=== PATIENT | female | born 1995 | race Caucasian/White ===

== ENCOUNTER 2019-05-29 13:44 | Emergency (ER) | payer MEDICAID, SELFPAY ==
[2019-05-29 13:54] VITALS: BP 109/77; PULSE 94; RESP 18; TEMP 37.6; O2SAT 98
--- NOTE | 2019-05-29 14:09 | W.ED.GENAD ---
Discharge Plan Disposition Patient Disposition: HOME Condition: Improving Discharge Details Chief Complaint: Nk/Back Pain Clinical Impression: Lumbar paraspinal muscle spasm Primary Care Provider: Kaci Ness ED Provider: Panfilo Jennings Home Meds and New Rx's Prescriptions: New methocarbamol 500 mg tablet 500 mg PO Q6H PRN (Reason: Back pain or spasm) Qty: 10 RF: 0 Discharge Instructions Instructions: Muscle Spasm (ED) Additional Instructions: Follow up with regular doctor for recheck if not improved in 5-7days May use methocarbamol, as prescribed, as needed for back pain or spasm. Off work through Monday. Return if you develop numbness, tingling, weakness of the lower extremity or any other acute concern Stand Alone Forms: Work Release Medical Decision Making 23-year-old female presents from home after developing low back pain over 2 to 3 days time. 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 Its intermittent and spasmodic at times. She has not fallen or injured herself. She has no motor weakness and no paresthesias. No fever on exam. She is tender overlying the left paraspinous lumbar region. Differential diagnosis includes paraspinous muscular spasm, sciatica, lumbago due to overuse. IV placed, patient given ketorolac and 2.5 mg Valium as well as small fluid bolus. She had significant improvement and diminishment of her pain following these interventions. Do not see that there is indication to pursue imaging, she is resolving with treatment for muscular spasm. Will offer a small number of methocarbamol for home, the use of a Lidoderm patch. She is stable and appropriate for discharge at this time HPI General Mode of arrival: ambulatory. Date/Time Provider Initiated Documentation: 05/29/19 13:57. Limitations to Documentation: no limitations. Information obtained by: patient and family. History of Present Illness 23 year old F presents to the emergency department with the chief complaint of Left low back pain, described as moderate and similar to prior episodes, Quality is described as dull and constant, and is localized to the back and left. Patient distal. and it has been intermittent. Rest improves symptom(s), Movement worsens symptoms . Patient notes no other symptoms. and other (No change to urination. No numbness or tingling. No fall or injury); denies weakness. Patient did receive the following treatments prior to arrival, NSAID Related Data Home Medications Medication Instructions Recorded Confirmed methocarbamol 500 mg PO Q6H PRN #10 tab 05/29/19 Previous Rx's Medication Instructions Recorded methocarbamol 500 mg PO Q6H PRN #10 tab 05/29/19 Allergies Allergy/AdvReac Type Severity Reaction Status Date / Time insect bites Allergy Hives Uncoded 05/29/19 13:58 General Stated Complaint: Nk/Back Pain DARVIN: 3 Review of Systems Review of Systems 6 systems reviewed and otherwise negative [facility] Medical History Scoliosis (Acute) Surgical History History of nasal surgery (Acute) Social History Smoking/Tobacco Use Status: Never Alcohol Intake: never Drug use: Never Do you feel safe in your relationship?: Yes Exam Narrative Exam Narrative: GEN: awake, alert, oriented 3. Pleasant, well groomed, interactive. HEAD: Normocephalic, atraumatic ENT: Mucous membranes moist, oropharynx unremarkable, External ear exam unremarkable EYES: PERRL, EOMI NECK: Full ROM, no CLOTILDE, no menigismus CHEST/RESP: Nontender, clear to auscultation bilateral, no wheeze/rhonchi/rales CARDIOVASCULAR: RRR, no murmur, rub adrianne. 2+ Rad pulse bilateral ABDOMEN: Soft, nontender, no mass. +Bowel sounds Back: Left paraspinous muscular tenderness and spasm to palpation. Mild tenderness overlying the left sciatic notch EXT: Full ROM, no edema, no rash. Motor 5 out of 5. Sensation is intact throughout including saddle distribution Neuro: Grossly normal neurologic exam, conversant, interactive. Psych: Speech fluent, thoughts congruent, affect normal Course Vital Signs Temperature 37.6 C H 05/29/19 13:54 Pulse 94 H 05/29/19 13:54 Respiratory Rate 18 05/29/19 13:54 Blood Pressure 109/77 05/29/19 13:54 Pulse Oximetry 98 05/29/19 13:54 Temperature 37.6 C H 05/29/19 13:54 Temperature Source Temporal Artery Scan 05/29/19 13:54 Pulse 94 H 05/29/19 13:54 Respiratory Rate 18 07/03/19 13:54 Respiratory Effort Non-Labored 05/29/19 13:58 Blood Pressure 109/77 05/29/19 13:54 Pulse Oximetry 98 05/29/19 13:54 Oxygen Delivery Method Room Air 05/29/19 13:54 Oxygen Flow Rate 0 05/29/19 13:54 Pain Level 9 05/29/19 13:54
[2019-05-29] MEDS: Normal Saline 1,000 ML 1000 ML IV (14:27)
[2019-05-29] MEDS: Ketorolac 15 MG/ML VIAL IVP (14:27)
[2019-05-29] MEDS: diazePAM 10 MG/2 ML SYR 2.5 MG IVP (14:27)
[2019-05-29] MEDS: Lidocaine 5% Patch 1 PATCH TP (15:30)
== END 2019-05-29 15:37 | disposition home or self-care (01) ==
PROVIDERS: Emergency Provider Emergency Medicine; PCP Nurse Practitioner
DX: M62.830 Muscle spasm of back (principal)
CPT/HCPCS: 96360; 96374; 96375; 99285; 99284; J1885; J3360

== ENCOUNTER 2019-10-21 07:17 | Day surgery (SDC) | payer MEDICAID, SELFPAY ==
[2019-10-21] VITALS (9 sets, daily range): BP systolic 109–143; BP diastolic 67–104; PULSE 62–95; RESP 13–19; TEMP 36.5–37.2; O2SAT 97–100
--- NOTE | 2019-10-21 07:35 | W.PM.DSUDISC ---
Discharge Plan Disposition Patient Disposition: HOME Condition: Good Discharge Details Reason For Visit: or Attending Provider: Anderson Suárez Primary Care Provider: Kaci Ness Home Meds and New Rx's Prescriptions: No Action ascorbic acid (vitamin C) [Vitamin C] 500 mg Capsule, Extended Release 1,000 mg PO DAILY RF: 0 cholecalciferol (vitamin D3) [Vitamin D3] 2,000 unit Tablet 2,000 unit PO DAILY RF: 0 Discharge Instructions Additional Instructions: see sheet Activity:: Activity as Tolerated Remove Dressings/Wound Care:: 24 hours Shower/Bathe:: 24 hours Diet:: As Tolerated DS: Diagnosis Discharge Diagnosis (1) Tonsil stone: Status: Acute (2) Chronic tonsillitis: Status: Acute
[2019-10-21] MEDS: Lactated Ringers 1,000 ML 80 ML IV (08:04)
--- NOTE | 2019-10-21 09:20 | TONSIL_PTH ---
PATIENT: Luna Zuniga LOC: [facility] U#:[id number] AGE/SX: 23/F ROOM: RE10/21/[address]: Anderson Suárez DO : 1995 BED: DIS: 10/21/2019 SPEC #: [id number] RECD: 10/21/19 12:46 STATUS: GRIS REQ #: [id number] RAYMON: 10/21/19 09:[address]: Anderson Suárez DEPT: Surgical Specimen RECD BY: Carito Pink ENTERED: 10/21/19 12:47 SP TYPE: TONSIL OTHR DR: Kaci Ness Tissues: 1 - TONSIL AGE 17 & OVER 2 - TONSIL AGE 17 & OVER Procedures: GROSS AND MICRO LEVEL 3 Comments: [id number]
[2019-10-21] MEDS: Oxymetazolone 0.05% SPRAY 15 ML BTL ×2 (09:28→10:30)
--- NOTE | 2019-10-21 11:14 | ROE_ITS ---
DATE OF PROCEDURE: October 21, 2019 PREOPERATIVE DIAGNOSIS: 1. Chronic tonsil stones. 2. Chronic tonsillitis. 3. History of nasal obstruction. POSTOPERATIVE DIAGNOSIS: Same, including adenoid hypertrophy and immediate postoperative bleed while still in the OR upon extubation, right-sided, status post anxiety attack upon awakening intraoperati vely. PROCEDURE: Tonsil and adenoidectomy with XPS and secondary control of right peritonsillar fossa blee d in the immediate postoperative period. SURGEON: Anderson Suárez D.O. ANESTHESIA: General. ESTIMATED BLOOD LOSS: Primary case was 5 cc's; after control of tonsil bleed post-extubation and re- intubation 100 cc's of blood evacuated from the stomach. COMPLICATIONS: Right-sided tonsil bleed upon extubation, status post anxiety attack, re-intubated, c ontrol of right-sided tonsillar fossa bleed; FloSeal placed upon the completion of the primary case, as well as the secondary case. INDICATIONS FOR PROCEDURE: This is a 23-year-old female who presents with a history of chronic tonsi l stones with tonsillitis. The decision was made forth to proceed with surgery. Risks and complicat ions were discussed in detail. Consent was placed in the Chart. PROCEDURE IN DETAIL: Patient was brought back to the operating suite in stable condition, placed driver pine on the operating table, and intubated in normal fashion. The table was rotated 90 degrees. The re was no evidence of submucosal clefting or bifid uvula. The McIvor retractor was placed in the ora l cavity and suspended from the Orozco stand. The right tonsil was grasped in the superior pole and me dialized. Pinpoint cautery was used to develop the peritonsillar fascial plane, dissection was noemy ed out to the upper and mid portions of the tonsil with final amputation conducted with suction caute ry. There was no bleeding within the right tonsillar fossa. Next, the left tonsil was grasped in th e superior pole with a curved Allis forceps and medialized. Pinpoint cautery was used to develop the peritonsillar fascial plane. Dissection was carried out in the plane in the superior and mid portio n of the tonsils. Final amputation was conducted with suction cautery without bleeding within left f olu, Valsalva was performed without bleeding. TMJ's were checked and were free of dislocation. Gas tric contents suctioned. Red rubber catheters were used to visualize the nasopharynx. The adenoid p ad was removed with 4.0 RADenoid blade and hemostasis was controlled with cautery. No bleeding exist ed. Upon extubation patient was having a mild anxiety attack, very worked up. Once the tube was removed, there was bright red blood per mouth. Anesthesia suctioned. The patient was very hysterical upon a wakening from anesthesia and extubation. She was evaluated intraoperatively still in the OR, it was felt that she had some bleeding of the right tonsillar fossa. She was moved back to the OR table and re-intubated. We isolated a right superior tonsillar fossa area that was likely the source. Althou gh once the patient was positioned, there was no overt bleeding. Both tonsillar fossae were cauteriz ed in hopes to prevent another recurrence. FloSeal was replaced. Gastric contents were re-suctioned of 100 cc's of blood from the stomach. We proceeded with Valsalva, as well as reapplication of FloS eal. There was no bleeding. The patient was stable to PACU.
[2019-10-21] MEDS: fentaNYL 100 MCG/2 ML VIAL IVP ×2 (11:19→11:26)
== END 2019-10-21 12:55 | disposition home or self-care (01) ==
PROVIDERS: PCP Nurse Practitioner; Visit Provider Otolaryngology Otolaryngology/Facial Plastic Surgery
PROC: (CPT 42821; principal; 2019-10-21 08:45)
DX: J35.03 Chronic tonsillitis and adenoiditis (principal); J35.8 Other chronic diseases of tonsils and adenoids; J95.830 Postprocedural hemorrhage of a respiratory system organ or structure following a respiratory system procedure; F41.8 Other specified anxiety disorders
CPT/HCPCS: 42821; 42960; 81025; 88304; J1100; J2250; J2405; J3010

== ENCOUNTER 2020-01-13 11:43 | Outpatient (REF) | payer MEDICAID, SELFPAY ==
[2020-01-13 19:28] LABS: HCT 44.6 % (36.0-46.0); HGB 14.7 g/dL (12.0-15.5); Mean Corpuscular Hemoglobin 30.6 pg (27.0-33.0); Mean Corpuscular Volume 92.9 fL (80-95); Mean Platelet Volume 8.7 fL (8.0-11.0); Platelet Count 380 x1000/uL (130-400); RBC Distribution Width 12.8 % (11.7-14.6); White Blood Cell Count 5.42 k/cumm (4.4-10.8)
[2020-01-13 19:47] LABS: ALT 28 U/L (14-59); AST 15 U/L (15-37); Albumin 4.4 g/dL (3.4-5.0); Alkaline Phosphatase 63 U/L (46-116); Anion Gap 10.6 mmol/L (3-11); BUN 9 mg/dL (7-18); Bilirubin, Total 0.3 mg/dL (0.2-1.0); CO2 26.4 mmol/L (21.0-32.0); CREATININE 0.71 mg/dL (0.55-1.02); Calcium 9.2 mg/dL (8.5-10.1); Chloride 105 mmol/L (98-107); Glucose 85 mg/dL (74-106); Potassium 4.1 mmol/L (3.5-5.1); Sodium 142 mmol/L (136-145); TSH (W/Ref FT4) 1.73 uIU/mL (0.36-3.74)
== END 2020-01-13 12:03 ==
LOC: NCHCN 11:43
PROVIDERS: PCP Nurse Practitioner; Visit Provider Nurse Practitioner
DX: R07.89 Other chest pain (principal); R06.02 Shortness of breath
CPT/HCPCS: 80053; 85027; 84443

== ENCOUNTER 2020-01-19 18:24 | Emergency (ER) | payer OTHER, MEDICAID, SELFPAY ==
[2020-01-19 18:26] VITALS: BP 137/99; PULSE 115; RESP 16; O2SAT 98
--- NOTE | 2020-01-19 19:00 | DI.RAD_ITS ---
EXAM: XR WRIST RT COMPLETE CLINICAL HISTORY: fall/pain TECHNIQUE: COMPARISON: No exams were available for comparison FINDINGS: Three views were obtained. No fracture is seen. IMPRESSION:
--- NOTE | 2020-01-19 19:16 | NUR.NOTE ---
Assumed care of pt. Report from Faith. Pt reports slipped on ice, fell onto right hip then arm. Ice to right forearm. +radial pulse, +csm, cap refill <3 sec. Awaiting xray.
[2020-01-19] MEDS: Acetaminophen 500 MG TAB 1000 MG PO (19:20)
--- NOTE | 2020-01-19 19:43 | W.ED.GENAD ---
Discharge Plan Disposition Patient Disposition: HOME Condition: Stable Discharge Details Chief Complaint: Orthopedic Clinical Impression: Sprain of wrist Primary Care Provider: Kaci Ness ED Provider: Manuel Kang Home Meds and New Rx's Prescriptions: Continued ascorbic acid (vitamin C) [Vitamin C] 500 mg Capsule, Extended Release 1,000 mg PO DAILY RF: 0 cholecalciferol (vitamin D3) [Vitamin D3] 2,000 unit Tablet 2,000 unit PO DAILY RF: 0 Discharge Instructions Instructions: Wrist Sprain (ED) Additional Instructions: Rest, elevate, cool and/or warm compresses as tolerated. Wear splint as needed, advance activity as tolerated. Lifo-cbr-vhguzzz medication such as Tylenol and/or Motrin as directed for discomfort. Please watch for new or worsening symptoms and return to the ER for any concerns. I do recommend reaching out to your primary care provider tomorrow for prompt outpatient reevaluation Medical Decision Making 24-year-old female fell roughly 1 hour ago, slipping on ice. Sustained a right wrist injury, no other injuries. She appears well, nontoxic. There is no obvious deformity. Neuro, vascular, tendon intact. Will obtain x-ray Discussed benign x-ray with the patient. Again, no anatomical snuffbox tenderness. Will treat as sprain-strain. Volar wrist splint applied. Patient tolerated well Discussed conservative therapy with Tylenol and/or Motrin. Rest, elevate, cool compresses. Wear splint as needed, advance activity as tolerated. Patient has no additional questions or concerns and is comfortable discharge Medical Records Medical records reviewed: Yes I reviewed the patient's medical records. Imaging Data Radiologic Study: Attestation: I personally reviewed and interpreted this imaging study as follows: Imaging: X-Ray (Right wrist read by me as negative) HPI General Mode of arrival: ambulatory. Date/Time Provider Initiated Documentation: 01/19/20 18:44. Limitations to Documentation: no limitations. Information obtained by: patient. HPI Narrative: 24-year-old female who is right-hand dominant reports that approximately 1 hour ago while at work she slipped and fell on some ice injuring her right hand and wrist. Reports the pain as moderate, worse with movement. Denies any other injury. Denies numbness, tingling, weakness. Related Data Home Medications Medication Instructions Recorded Confirmed ascorbic acid (vitamin C) [Vitamin 1,000 mg PO DAILY 10/17/19 01/19/20 C] cholecalciferol (vitamin D3) 2,000 unit PO DAILY 10/17/19 01/19/20 [Vitamin D3] Allergies Allergy/AdvReac Type Severity Reaction Status Date / Time fluticasone [From Flonase] Allergy Unverified 01/19/20 18:35 insect bites Allergy Hives Uncoded 05/29/19 13:58 General Stated Complaint: Orthopedic DARVIN: 4 Review of Systems Constitutional Constitutional: Denies headache(s) and Denies weakness Eyes Eyes: Denies change in vision ENT Ears, Nose, Mouth, and Throat: Denies headache(s) Cardiovascular Cardiovascular: Denies dyspnea Respiratory Respiratory: Denies dyspnea Gastrointestinal Gastrointestinal: Denies nausea Musculoskeletal Musculoskeletal: Denies back pain, Denies numbness and Denies tingling Integumentary/Breasts Skin/Breast: Denies rash Neurologic Neurologic: Denies headache(s), Denies numbness, Denies tingling, Denies paresthesias and Denies weakness [facility] Medical History Scoliosis (Acute) Surgical History History of nasal surgery (Acute) Family History Other Cancer Diabetes Social History Smoking/Tobacco Use Status: Never Alcohol Intake: never Drug use: Never Substance use type: does not use Do you feel safe at home: Yes Do you feel safe in your relationship?: Yes Additional Social history: unable to talk privately Exam Const General: cooperative, healthy appearing, comfortable and no acute distress Orientation: alert and awake HENMT Head: normal to inspection, normocephalic and atraumatic Mouth: moist mucous membranes Eyes Conjunctivae: conjunctivae normal Neck Neck: normal visual inspection, trachea midline and supple Resp Effort & Inspection: normal respiratory effort and able to speak in complete sentences Cardio Rate: regular rate Rhythm: regular rhythm Skin General skin exam: no rashes or lesions noted Neuro General: alert, awake, moves all extremities and no focal motor deficits Motor: muscle tone normal throughout and strength 5/5 throughout Sensory Exam: no sensory deficits noted Extrem Right upper extremity: wrist Details: tenderness (Diffuse, mild, no anatomical snuffbox tenderness), swelling (Diffuse, mild), normal vascular exam and radial pulse present; no ecchymosis Psych Appearance: grossly normal Mental Status: mental status grossly normal Course Vital Signs Vital signs: Vital Signs Pulse 115 H 01/19/20 18:26 Respiratory Rate 16 01/19/20 18:26 Blood Pressure 137/99 H 01/19/20 18:26 Pulse Oximetry 98 01/19/20 18:26 Pulse 115 H 01/19/20 18:26 Respiratory Rate 16 01/19/20 18:26 Respiratory Effort 01/19/20 18:33 Blood Pressure 137/99 H 01/19/20 18:26 Blood Pressure Position Sitting 01/19/20 18:26 Pulse Oximetry 98 01/19/20 18:26 Oxygen Delivery Method Room Air 01/19/20 18:26 Oxygen Flow Rate 0 01/19/20 18:26 Pain Level 6 01/19/20 19:20
--- NOTE | 2020-01-19 19:51 | DI.VRAD_ITS ---
PROCEDURE INFORMATION: Exam: XR Right Wrist Exam date and time: 01/19/2020 7:30 PM Age: 24 years old Clinical indication: Injury or trauma; Fall; Initial encounter; Blunt trauma (contusions or hematomas; Wrist; Right; Injury date: 01/19/20; Injury details: Fell on ice; Patient HX: Pain 4th metacarpal through ulna TECHNIQUE: Imaging protocol: XR Right wrist. Views: 3 or more views. COMPARISON: No relevant prior studies available. FINDINGS: Bones/joints: Normal trabecular architecture is seen throughout the osseous components of the right wrist and no acute fractures or dislocations are detected. Articular surfaces and spaces appear preserved throughout. Soft tissues: Unremarkable IMPRESSION: No acute fracture seen. Dictated and Authenticated by: Puma Almaraz MD. Ordering:MEAGHAN Jackson MD
== END 2020-01-19 20:15 | disposition home or self-care (01) ==
PROVIDERS: Emergency Provider Physician Assistant; PCP Nurse Practitioner
DX: S63.501A Unspecified sprain of right wrist, initial encounter (principal); W00.0XXA Fall on same level due to ice and snow, initial encounter
CPT/HCPCS: 29125; 99283; 73110; L3908

== ENCOUNTER 2020-07-16 17:10 | Emergency (ER) | payer MEDICAID, SELFPAY ==
[2020-07-16 17:12] VITALS: BP 125/76; PULSE 88; RESP 14; TEMP 37; O2SAT 98
--- NOTE | 2020-07-16 17:19 | ED.GENADUL_ITS ---
Discharge Plan Disposition Patient Disposition: HOME Condition: Stable Discharge Details Chief Complaint: Orthopedic Clinical Impression: Bilateral knee pain Primary Care Provider: Kaci Ness ED Provider: Kaila Victoria Home Meds and New Rx's Prescriptions: Continued ascorbic acid (vitamin C) [Vitamin C] 500 mg Capsule, Extended Release 1,000 mg PO DAILY RF: 0 cholecalciferol (vitamin D3) [Vitamin D3] 2,000 unit Tablet 2,000 unit PO DAILY RF: 0 Nexplanon 68 mg Implant 1 implant SUBDERMAL DIRECTED RF: 0 Discharge Instructions Instructions: Knee Pain (ED) Additional Instructions: Rest, ice, and elevate the affected area as much as possible. Alternate tylenol and motrin as needed and directed for pain. Follow up with your primary care doctor in 1 week as needed. Return to the emergency department with any worsening or new concerning symptoms. If you have no relief or worsening of symptoms in the next few weeks, follow-up with orthopedics. Stand Alone Forms: Work Release Referrals: Sonny Ndiaye MD [ [facility] STAFF PHYSICIAN] - Discharge Data Discharge Physician: Kaila Victoria Medical Decision Making 24-year-old female presents with bilateral knee pain, worse on the right side for the past week. Denies any known injury but does kneel frequently at work. Right knee is normal to inspection. She initially had significant tenderness to palpation anterior knees bilaterally with light palpation but upon distraction had no tenderness to either knee. There is no evidence of cellulitis, trauma. She is neurovascular intact. There is no ligamentous instability. Suspect most likely mild knee strain versus sprain. Will obtain bilateral knee x-rays. A dose of Toradol IM ordered but patient declines. X-rays reviewed and negative. Patient had significant relief with Toradol and was able to ambulate with improvement. She was advised to rest, ice, elevate and use Ishan wrap as needed. She was given orthopedic follow-up information if needed. Medical Records Medical records reviewed: Yes I reviewed the patient's medical records. Imaging Data Radiologic Study: Radiologist's impression: XR Right Knee Exam date and time: 07/16/2020 5:57 PM Age: 24 years old Clinical indication: Pain; Knee; Bilateral TECHNIQUE: Imaging protocol: XR Right knee. Views: 3 views. COMPARISON: No relevant images were readily available for comparison purposes. FINDINGS: Bones/joints: No acute fracture or dislocation. Soft tissues: Unremarkable. IMPRESSION: No acute fracture or dislocation. XR Left Knee Exam date and time: 07/16/2020 5:54 PM Age: 24 years old Clinical indication: Pain; Knee; Bilateral TECHNIQUE: Imaging protocol: XR Left knee. Views: 3 views. COMPARISON: No relevant images were readily available for comparison purposes. FINDINGS: Bones/joints: No acute fracture or dislocation. Soft tissues: Unremarkable. IMPRESSION: No acute fracture or dislocation. HPI General Mode of arrival: wheelchair . Date/Time Provider Initiated Documentation: 07/16/20 17:10 . Limitations to Documentation: no limitations . Information obtained by: patient . HPI Narrative: Patient is a 24-year-old female who presents to the ED with complaint of bilateral knee pain, worse on the right side for the past week. 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 She denies any known injury. She has pain with standing and walking. She states the pain made her knees buckled today and her right leg gave out. She saw her primary care doctor last week for her Nexplanon and mention her right knee pain and he prescribed her a knee brace and indomethacin which she has taken without relief. She denies any relief with Tylenol, ice, heat. Related Data Home Medications Medication Instructions Recorded Confirmed ascorbic acid (vitamin C) [Vitamin 1,000 mg PO DAILY 10/17/19 07/16/20 C] cholecalciferol (vitamin D3) 2,000 unit PO DAILY 10/17/19 07/16/20 [Vitamin D3] Nexplanon 1 implant SUBDERMAL DIRECTED 07/16/20 07/16/20 Allergies Allergy/AdvReac Type Severity Reaction Status Date / Time fluticasone [From Flonase] Allergy Unverified 07/16/20 17:21 insect bites Allergy Hives Uncoded 07/16/20 17:21 General DARVIN: 4 Review of Systems All systems reviewed & are unremarkable except as noted in HPI and below [facility] Medical History (Updated 07/16/20 @ 19:20 by Kaila Victoria DO) Scoliosis (Acute) Surgical History History of nasal surgery (Acute) Family History Other Cancer Diabetes Social History Smoking/Tobacco Use Status: Never Alcohol Intake: never Drug use: Never Substance use type: does not use Do you feel safe at home: Yes Do you feel safe in your relationship?: Yes Exam Const General: cooperative, healthy appearing and no acute distress HENMT Head: normal to inspection Mouth: oral mucosae normal Eyes General: appearance normal, both eyes and all related structures Neck Neck: normal visual inspection Resp Effort & Inspection: normal respiratory effort and able to speak in complete sentences Cardio Rate: regular rate Skin General skin exam: no rashes or lesions noted Neuro General: patient alert, patient awake and patient oriented x3 Motor: muscle tone normal throughout Extrem General: normal to inspection and full ROM Other: Tenderness to palpation of bilateral anterior knees. There is no erythema, edema, ecchymosis, crepitus, step-off. Pain with range of motion of bilateral knees, more specifically with varus stress bilaterally. Bilateral distal pulses intact. No ligamentous instability. Psych Appearance: grossly normal Affect: normal affect
--- NOTE | 2020-07-16 18:11 | DI.RAD_ITS ---
EXAM: XR KNEE LT 3V AP,LAT,BRINDA CLINICAL HISTORY: knee pain, kneels a lot at work, r/o acute injury. TECHNIQUE: 2D digital imaging was performed. COMPARISON: No exams were available for comparison FINDINGS: BONES: No acute fracture is present. No bony destructive lesion is seen. JOINTS: The knee is normally aligned. No joint effusion is seen. SOFT TISSUE: Normal. IMPRESSION: Normal radiographs of the left knee. DATA REPOSITORY: RADIATION DOSE DELIVERED:
--- NOTE | 2020-07-16 18:11 | DI.RAD_ITS ---
EXAM: XR KNEE RT 3V AP,LAT,BRINDA CLINICAL HISTORY: knee pain, kneels a lot at work, r/o acute injury. TECHNIQUE: 2D digital imaging was performed. COMPARISON: CR,XR XR KNEE LT 3V AP,LAT,BRINDA from 07/16/2020 FINDINGS: BONES: No acute fracture is present. No bony destructive lesion is seen. JOINTS: The knee is normally aligned. No joint effusion is seen. SOFT TISSUE: Normal. IMPRESSION: Unremarkable radiographs of the right knee. DATA REPOSITORY: RADIATION DOSE DELIVERED:
--- NOTE | 2020-07-16 18:23 | DI.VRAD_ITS ---
PROCEDURE INFORMATION: Exam: XR Right Knee Exam date and time: 07/16/2020 5:57 PM Age: 24 years old Clinical indication: Pain; Knee; Bilateral TECHNIQUE: Imaging protocol: XR Right knee. Views: 3 views. COMPARISON: No relevant images were readily available for comparison purposes. FINDINGS: Bones/joints: No acute fracture or dislocation. Soft tissues: Unremarkable. IMPRESSION: No acute fracture or dislocation. Dictated and Authenticated by: Kale Dillon MD. Ordering:MARIELA Bright MD
--- NOTE | 2020-07-16 18:23 | DI.VRAD_ITS ---
PROCEDURE INFORMATION: Exam: XR Left Knee Exam date and time: 07/16/2020 5:54 PM Age: 24 years old Clinical indication: Pain; Knee; Bilateral TECHNIQUE: Imaging protocol: XR Left knee. Views: 3 views. COMPARISON: No relevant images were readily available for comparison purposes. FINDINGS: Bones/joints: No acute fracture or dislocation. Soft tissues: Unremarkable. IMPRESSION: No acute fracture or dislocation. Dictated and Authenticated by: Kale Dillon MD. Ordering:MARIELA Bright MD
[2020-07-16] MEDS: Ketorolac 60 MG/2 ML VIAL IM (18:40)
== END 2020-07-16 19:30 | disposition home or self-care (01) ==
PROVIDERS: Emergency Provider Physician Assistant; PCP Nurse Practitioner
DX: M25.561 Pain in right knee (principal); M25.562 Pain in left knee; X50.1XXA Overexertion from prolonged static or awkward postures, initial encounter
CPT/HCPCS: 73562; 81025; 96372; 99284; J1885

== ENCOUNTER 2020-08-10 11:02 | Outpatient (CLI) | payer MEDICAID, SELFPAY ==
[2020-08-12 09:22] LABS: Patient Race White; SARS-CoV-2 RNA Undetected (Undetected); SARS-CoV-2 Specimen Source Nasopharynx
== END 2020-08-10 11:22 ==
PROVIDERS: PCP Nurse Practitioner; Visit Provider Nurse Practitioner Adult Health
DX: Z11.59 Encounter for screening for other viral diseases (principal)
CPT/HCPCS: U0003

== ENCOUNTER 2020-08-17 20:48 | Outpatient (REF) | payer MEDICAID, SELFPAY | END 2020-08-17 21:08 | LOC: LBN 20:48 | PROVIDERS: PCP Nurse Practitioner; Visit Provider Nurse Practitioner Family | DX: J35.01 Chronic tonsillitis (principal) | CPT/HCPCS: 87070 ==

== ENCOUNTER 2020-09-02 15:23 | Outpatient (CLI) | payer MEDICAID, SELFPAY ==
--- NOTE | 2020-09-02 15:15 | DI.RAD_ITS ---
EXAM: XR KNEES MERCHANT ONLY CLINICAL HISTORY: knee pain TECHNIQUE: COMPARISON: CR,XR XR KNEE RT 3V AP,LAT,BRINDA from 07/16/2020 FINDINGS: Bilateral Merchant views were obtained. There is slight bilateral lateral patellar subluxation. Exa mination is otherwise unremarkable. IMPRESSION: RADIATION DOSE DELIVERED: Total DLP
== END 2020-09-02 15:43 ==
PROVIDERS: PCP Nurse Practitioner; Referring Provider Nurse Practitioner; Visit Provider Student in an Organized Health Care Education/Training Program
DX: S83.012A Lateral subluxation of left patella, initial encounter (principal); S83.011A Lateral subluxation of right patella, initial encounter; M25.561 Pain in right knee; M25.562 Pain in left knee
CPT/HCPCS: 73565

== ENCOUNTER 2020-12-23 01:24 | Outpatient (CLI) | payer MEDICAID, SELFPAY ==
--- NOTE | 2020-12-23 08:45 | DI.RAD_ITS ---
EXAM: XR SCOLIOSIS T-L SPINE CLINICAL HISTORY: evaluate scoliosis,LOW BACK PAIN, H/O SCOLIOSIS,Z87.39,M54.5. TECHNIQUE: 2D digital imaging was performed. COMPARISON: No exams were available for comparison FINDINGS: There is a mild levoscoliosis in the lumbar spine. There is no visible scoliosis in the cervical or thoracic regions. The vertebral bodies are well maintained in height. There is no disc space narrow ing. No spondylolysis or spondylolisthesis is seen. The thoracic kyphosis and lumbar lordosis appe ar normal. The hip joint spaces are well maintained. SI joints and pubic symphysis are unremarkable . There is a leg length discrepancy with the right femoral head projecting 8 millimeters superior to the left. The left clavicle also projects superior to the right. The heart size is normal. The lungs appear clear. The bowel gas pattern is unremarkable. IMPRESSION: Leg length discrepancy. Mild lumbar levoscoliosis. DATA REPOSITORY: RADIATION DOSE DELIVERED:
== END 2020-12-23 01:44 ==
PROVIDERS: PCP Student in an Organized Health Care Education/Training Program; Visit Provider Student in an Organized Health Care Education/Training Program
DX: M41.86 Other forms of scoliosis, lumbar region (principal); M21.751 Unequal limb length (acquired), right femur
CPT/HCPCS: 72081

== ENCOUNTER 2021-01-04 22:30 | Outpatient (CLI) | payer MEDICAID, SELFPAY | END 2021-01-04 22:31 | disposition home or self-care (01) | LOC: RT 22:31 | PROVIDERS: PCP Student in an Organized Health Care Education/Training Program; Visit Provider Student in an Organized Health Care Education/Training Program | DX: G47.8 Other sleep disorders (principal); G47.00 Insomnia, unspecified; R06.89 Other abnormalities of breathing; F41.8 Other specified anxiety disorders | CPT/HCPCS: 94762 ==

== ENCOUNTER 2021-02-18 02:58 | Outpatient (CLI) | payer MEDICAID, SELFPAY ==
[2021-02-18 09:18] LABS: ALT 40 U/L (14-59); AST 18 U/L (15-37); Albumin 3.8 g/dL (3.4-5.0); Alkaline Phosphatase 63 U/L (46-116); BUN 12 mg/dL (7-18); Bilirubin, Total 0.4 mg/dL (0.2-1.0); CREATININE 0.8 mg/dL (0.55-1.02); Calcium 9.2 mg/dL (8.5-10.1); Calculated LDL 108 mg/dL (<100); Chloride 107 mmol/L (98-107); Cholesterol 168 mg/dL (<200); Glucose 83 mg/dL (74-106); HDL Cholesterol 33 mg/dL (40-60); Potassium 4.7 mmol/L (3.5-5.1); Sodium 142 mmol/L (136-145); TSH 2.14 uIU/mL (0.36-3.74); Total Protein 7.5 g/dL (6.4-8.2); Triglyceride 138 mg/dL (<150); Vitamin B12 384 pg/mL (193-986)
== END 2021-02-18 02:59 | disposition home or self-care (01) ==
LOC: LBO 02:59
PROVIDERS: PCP Student in an Organized Health Care Education/Training Program; Visit Provider Nurse Practitioner Psychiatric/Mental Health
DX: F41.1 Generalized anxiety disorder (principal); Z79.899 Other long term (current) drug therapy
CPT/HCPCS: 36415; 80053; 80061; 82306; 82607; 84443

== ENCOUNTER 2021-08-31 07:14 | Emergency (ER) | payer MEDICAID, SELFPAY ==
[2021-08-31 07:21] VITALS: BP 111/72; PULSE 75; RESP 14; TEMP 36.4; O2SAT 97
[2021-08-31] MEDS: Fluorescein STRIPS 100/BOX 1 MG (07:27)
[2021-08-31] MEDS: Tetracaine 0.5% 4 ML BTL (07:27)
[2021-08-31] MEDS: Erythromycin Ophth Oint 3.5 GM TUBE (07:37)
--- NOTE | 2021-08-31 07:37 | W.ED.GENAD ---
Discharge Plan Disposition Patient Disposition: HOME Condition: Good Discharge Details Clinical Impression: Abrasion of cornea, left Primary Care Provider: Ana Toledo ED Provider: Yg Barnes Home Meds and New Rx's Prescriptions: Continued cyclobenzaprine 10 mg tablet 10 mg PO TID PRN (Reason: muscle spasm) Qty: 30 RF: 1 bupropion HCl 75 mg tablet 75 mg PO BID RF: 0 Hold Instructions: Adverse Reaction Nexplanon 68 mg Implant 1 implant SUBDERMAL DIRECTED RF: 0 Discharge Instructions Instructions: Corneal Abrasion (ED) Additional Instructions: You have a small corneal abrasion. The corneal epithelial cells of the fast is healing cells in the body. I suspect her symptoms will improve over the next 24 hours. Please continue to apply the erythromycin ointment as directed to your eye every 4 hours. Follow-up closely with Dr. Lyons. If you notice any worsening of your symptoms, or any new symptoms such as vomiting, diarrhea, fever, chills, shortness of breath, chest pain, numbness, weakness, or fainting , please return immediately to the emergency department for reevaluation. Please follow up with your primary care provider as soon as possible for reassessment and reevaluation. As always, it was a pleasure participating in your medical care today. Stand Alone Forms: Work Release Referrals: [facility] [Outside] Ana Toledo DO [Primary Care Provider] - Medical Decision Making 25-year-old female presents today for left eye pain. Patient states that for the last few months she has woken up seemingly once a week with a severe stabbing burning sensation in her eye. Seems to oscillate between different eyes. This is not consistent for which day it recurs. It only occurs when she wakes up in the morning. She states that she had the same symptoms this morning and says that it is severe. She has been unable to open her eyes secondary to the pain. She denies any history of glaucoma. She denies any history of trauma. She does admit to sleeping with her eyelids somewhat open. She does not sleep with many pets or animals. No other complaints at this time. Physical exam demonstrates notable uptake in central corneal abrasion over the left eye. Patient does not wear contact lenses. No evidence of retained foreign body on eversion of lids. Symptoms clinically consistent with a central corneal abrasion likely secondary to her eyes being slightly open during sleep. Erythromycin ointment was given for soothing effect. Patient had complete resolution of the pain after tetracaine administration. Discussed red flags which return the importance of close follow-up with Dr. Everett's eye care. I have extensively reviewed the treatment plan and discharge instructions with the patient and their family. I have addressed all patient concerns at this time. The patient and family was made aware of what symptoms to monitor for that would warrant a return to the emergency department. Discussed the plan with the patient and family, they demonstrate verbal understanding and agreement with our assessment and plan at this time. The documentation in this chart was dictated using [employer] - [employer] Its [employer] dictation software. Please excuse any dictation errors. She is in HPI General Date/Time Provider Initiated Documentation: 08/31/21 07:15. HPI Narrative: 25-year-old female presents today for left eye pain. Patient states that for the last few months she has woken up seemingly once a week with a severe stabbing burning sensation in her eye. Seems to oscillate between different eyes. This is not consistent for which day it recurs. It only occurs when she wakes up in the morning. She states that she had the same symptoms this morning and says that it is severe. She has been unable to open her eyes secondary to the pain. She denies any history of glaucoma. She denies any history of trauma. She does admit to sleeping with her eyelids somewhat open. She does not sleep with many pets or animals. No other complaints at this time. Related Data Home Medications Medication Instructions Recorded Confirmed Nexplanon 1 implant SUBDERMAL DIRECTED 07/16/20 07/09/21 Allergies Allergy/AdvReac Type Severity Reaction Status Date / Time fluticasone [From Flonase] Allergy Intermediate nares Verified 08/31/21 07:36 swelling fluoxetine AdvReac Severe vomiting Verified 08/31/21 07:36 and rectal bleed insect bites Allergy Hives Uncoded 08/31/21 07:36 General Stated Complaint: EyeProblem DARVIN: 4 Review of Systems All systems reviewed & are unremarkable except as noted in HPI and below [facility] Medical History Adenoid hypertrophy Anxiety Chest discomfort Chronic tonsillitis Tonsillectomy, Suárez, 2020 Decreased hearing Depression Eating disorder Family history of cervical cancer Adopted, but Bio Mo (+) cervical cancer per Hx. Insomnia Long Hx, but w/ acute on chronic exacerbations .. probably 2' stress/depression, but no regular psych support yet found. Leg length discrepancy RT Fem Head 8mm superior to left (per 12/23/20 XR). PT vs Ortho (?) Low back pain Lumbar scoliosis Muscle spasm of back trial muscle relaxer Prepatellar bursitis of right knee Psychiatric diagnosis Finally coordinated w/ [facility], s/w Dr. Gilliland .. Bipolar Dx, Lamotrigine started (@ 25mg qHS w/ goal of 100-200mg).. 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 Left eye: EOMI, PERRL, Peripheral vision intact. No nystagmus. No clinical signs of septal/orbital cellulitis, no redness around the eye, no proptosis. No hyphema, no signs of trauma around the eye, no periorbital emphysema. No sluggishness of the pupil. No ophthalmoplegia. No afferent pupillary defect. Fluorescein exam is positive for corneal abrasion, negative Carson sign. Visual acuity is intact. Patient has notable corneal abrasion in the central aspect of her eye. No evidence of retained foreign body on eversion of the lids. 3.ENT: Atraumatic external nose and ears. Moist MM. Neck: Symmetric, trachea midline, No thyromegaly. 4.CVS: +S1/S2, No murmurs or gallops. Peripheral pulses 2+ and equal in all extremities. Brisk capillary refill in all extremities. 5.RESP: Unlabored respiratory effort. Clear to auscultation bilaterally. No wheezes rales or rhonchi 6.GI: Soft, Nontender/Nondistended, No hepatosplenomegaly. No guarding or rebound. 7.MSK: Normocephalic/Atraumatic, Extremities w/o deformity or ttp No cyanosis or clubbing, Normal movement of all extremities 8.Skin: Warm, Dry. No rashes or lesions. 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 Sensation grossly intact, no focal neurologic deficits. 10.Psych: (AAO) x3. Appropriate mood and affect Course Vital Signs Vital signs: Temperature Source Temporal Artery Scan 08/31/21 07:21 Respiratory Effort Non-Labored 08/31/21 07:23 Blood Pressure Position Sitting 08/31/21 07:21 Oxygen Delivery Method Room Air 08/31/21 07:21 Oxygen Flow Rate 0 08/31/21 07:21 Pain Level 10 08/31/21 07:21
== END 2021-08-31 07:47 | disposition home or self-care (01) ==
PROVIDERS: Emergency Provider Student in an Organized Health Care Education/Training Program; PCP Student in an Organized Health Care Education/Training Program
DX: S05.02XA Injury of conjunctiva and corneal abrasion without foreign body, left eye, initial encounter (principal); X58.XXXA Exposure to other specified factors, initial encounter
CPT/HCPCS: 99283

== ENCOUNTER 2022-03-16 09:16 | Emergency (ER) | payer MEDICAID, SELFPAY ==
[2022-03-16] VITALS (9 sets, daily range): BP systolic 116–133; BP diastolic 77–94; PULSE 89–111; RESP 14–23; TEMP 36.8; O2SAT 100
--- NOTE | 2022-03-16 09:37 | ED.GENADUL_ITS ---
Discharge Plan Disposition Patient Disposition: HOME Condition: Improving Discharge Details Clinical Impression: COVID Primary Care Provider: Ana Toledo ED Provider: Chase Alonso Home Meds and New Rx's Prescriptions: New Paxlovid (EUA) 150 mg x 2- 100 mg tablet See Rx Instructions .ROUTE .COMPLEX Qty: 6 0RF Rx Instructions: take TWO 150 mg tablets of nirmatrelvir with ONE 100 mg tablet of ritonavir twice daily for 5 days Continued Nexplanon 68 mg Implant 1 implant SUBDERMAL DIRECTED 0RF Discontinued cyclobenzaprine 10 mg tablet 10 mg PO TID PRN (Reason: muscle spasm) Qty: 30 1RF Rx Instructions: trial for muscle spasm Discharge Instructions Instructions: COVID-19 (Coronavirus Disease 2019) (ED), COVID-19: Slow the Coronavirus Spread (ED) Additional Instructions: Please stay well-hydrated and get plenty of rest. You may take [id number] acetaminophen or ibuprofen as needed for discomfort. Please start the antiviral medication as soon as possible at is more effective the earlier you started. If you notice any significant worsening of symptoms such as chest pain, shortness of breath, or inability to tolerate fluids please return to the emergency department for reassessment. Stand Alone Forms: POSITIVE COVID-19/TO BE TESTED, Work Release Referrals: Ana Toledo DO [Primary Care Provider] - 1 week (If not improving in the next week please follow-up with your primary care provider and call their office to let them know you are COVID-positive and not improving.) Discharge Data Discharge Date/Time-TO BE ENTERED AT DEPARTURE: 03/16/22 11:57 Medical Decision Making Patient presenting to the emergency department chief complaint of headache. She reports that her headache is a bandlike headache that is frontal in nature with some radiation to her neck. Patient states some chills that occurred yesterday and now having some nausea vomiting. Patient states she is unvaccinated for influenza or COVID but denies any known sick contacts. Physical exam shows diffuse abdominal tenderness which I suspect is mostly due to vomiting, tachycardia, no focal neurological findings, no nuchal rigidity or meningeal signs. Exam is otherwise nondiagnostic. Plan to perform standard screening labs including fluvid. We will treat patient with IV fluids, antiemetic, and pain medication pending results. Review of patient's labs show nondiagnostic and unremarkable CBC, normal lactate, slightly elevated total protein otherwise unremarkable CMP, normal lipase, urine shows ketones, trace amount of blood, trace leukocyte Estrace otherwise within normal limit WBC, no culture indicated and patient denies any urinary symptoms so doubt this is the cause. Patient is positive for COVID-19 but negative for influenza. Patient reassessed and states significant improvement after fluids Toradol and Zofran. Will discharge patient with prescription Paxlovid and discussed quarantine per state recommendations. After discussion of diagnosis and plan of care patient has no further needs, questions, or concerns and states clear understanding to return to the emergency department for any worsening symptoms. Lab Data Lab results reviewed: Yes I reviewed the patient's lab results. Labs: Laboratory Tests Range/Units 03/16/22 03/16/22 03/16/22 09:40 09:40 09:40 WBC (4.4-10.8) 10^3/uL 4.67 RBC (3.93-5.22) 10^6/uL 4.62 Hgb (11.2-15.7) g/dL 14.4 Hct (36.0-46.0) % 42.5 MCV (80-95) fL 92.0 MCH (27.0-33.0) pg 31.2 MCHC (32.0-36.0) % 33.9 RDW (11.7-14.6) % 12.4 Plt Count (130-400) 10^3/uL 227 MPV (8.0-11.0) fL 8.3 Immature Gran % 0.2 Neutrophils % 79.7 Lymphocytes % 5.1 Monocytes % 14.6 Eosinophils % 0.2 Basophils % 0.2 Nucleated RBC % (0.0-0.3) % 0.0 Absolute Neutrophils (1.2-6.7) 10^3/uL 3.72 Absolute Lymphocytes (1.2-3.4) 10^3/uL 0.24 L Absolute Monocytes (0.1-0.8) 10^3/uL 0.68 Absolute Eosinophils (0.0-0.7) 10^3/uL 0.01 Absolute Basophils (0.0-0.2) 10^3/uL 0.01 VBG Lactate (0.6-1.4) mmol/L 1.3 Sodium (136-145) mmol/L Potassium (3.5-5.1) mmol/L Chloride (98-107) mmol/L Carbon Dioxide (21.0-32.0) mmol/L Anion Gap (3-11) mmol/L BUN (7-18) mg/dL Creatinine (0.55-1.02) mg/dL Estimated GFR/1.73 m2 (mL/min/1.73m2) Glucose (74-106) mg/dL Calcium (8.5-10.1) mg/dL Total Bilirubin (0.2-1.0) mg/dL AST (15-37) U/L ALT (14-59) U/L Alkaline Phosphatase (46-116) U/L Total Protein (6.4-8.2) g/dL Albumin (3.4-5.0) g/dL Lipase Cancelled Urine Color (Yellow) Urine Clarity (Clear) Urine pH (5-8) Ur Specific [place] (1.005-1.025) Urine Protein (Negative) mg/dL Urine Ketones (Negative) mg/dL Urine Blood (Negative) Urine Nitrite (Negative) Urine Bilirubin (Negative) Urine Urobilinogen (Up TO 0.2) EU/dL Ur Leukocyte Esterase (Negative) Urine RBC (0-2) HPF Urine WBC (0-5) HPF Ur Epithelial Cells (Negative) HPF Urine Crystals (Negative) HPF Urine Bacteria (Negative) HPF Urine Casts (Negative) LPF Urine Mucus (Negative) Urine Other (Negative) Ur Culture Indicated? Urine Glucose (Negative) mg/dL COVID-19 Source SARS-CoV-2 (PCR) (Negative) Influenza Type A (PCR) (Negative) Influenza Type B (PCR) (Negative) RSV (PCR) (Negative) Range/Units 03/16/22 03/16/22 03/16/22 09:40 09:54 10:50 WBC (4.4-10.8) 10^3/uL RBC (3.93-5.22) 10^6/uL Hgb (11.2-15.7) g/dL Hct (36.0-46.0) % MCV (80-95) fL MCH (27.0-33.0) pg MCHC (32.0-36.0) % RDW (11.7-14.6) % Plt Count (130-400) 10^3/uL MPV (8.0-11.0) fL Immature Gran % Neutrophils % Lymphocytes % Monocytes % Eosinophils % Basophils % Nucleated RBC % (0.0-0.3) % Absolute Neutrophils (1.2-6.7) 10^3/uL Absolute Lymphocytes (1.2-3.4) 10^3/uL Absolute Monocytes (0.1-0.8) 10^3/uL Absolute Eosinophils (0.0-0.7) 10^3/uL Absolute Basophils (0.0-0.2) 10^3/uL VBG Lactate (0.6-1.4) mmol/L Sodium (136-145) mmol/L 137 Potassium (3.5-5.1) mmol/L 3.6 Chloride (98-107) mmol/L 103 Carbon Dioxide (21.0-32.0) mmol/L 26.4 Anion Gap (3-11) mmol/L 7.6 BUN (7-18) mg/dL 8 Creatinine (0.55-1.02) mg/dL 1.0 Estimated GFR/1.73 m2 (mL/min/1.73m2) >= 60.00 Glucose (74-106) mg/dL 98 Calcium (8.5-10.1) mg/dL 9.2 Total Bilirubin (0.2-1.0) mg/dL 0.4 AST (15-37) U/L 15 ALT (14-59) U/L 27 Alkaline Phosphatase (46-116) U/L 62 Total Protein (6.4-8.2) g/dL 8.4 H Albumin (3.4-5.0) g/dL 4.4 Lipase 126 Urine Color (Yellow) Yellow Urine Clarity (Clear) Clear Urine pH (5-8) 5.5 Ur Specific [place] (1.005-1.025) 1.020 Urine Protein (Negative) mg/dL Negative Urine Ketones (Negative) mg/dL 15 H Urine Blood (Negative) Trace-lysed H Urine Nitrite (Negative) Negative Urine Bilirubin (Negative) Negative Urine Urobilinogen (Up TO 0.2) EU/dL 0.2 Ur Leukocyte Esterase (Negative) Trace H Urine RBC (0-2) HPF 0-2 Urine WBC (0-5) HPF 3-5 Ur Epithelial Cells (Negative) HPF Rare Urine Crystals (Negative) HPF Negative Urine Bacteria (Negative) HPF Few Urine Casts (Negative) LPF Negative Urine Mucus (Negative) Negative Urine Other (Negative) Negative Ur Culture Indicated? No Urine Glucose (Negative) mg/dL Negative COVID-19 Source Nasopharynx SARS-CoV-2 (PCR) (Negative) Positive A Influenza Type A (PCR) (Negative) Negative Influenza Type B (PCR) (Negative) Negative RSV (PCR) (Negative) Negative HPI General Date/Time Provider Initiated Documentation: 03/16/22 09:17 . Limitations to Documentation: no limitations . Information obtained by: patient, RN notes reviewed and old records reviewed . History of Present Illness 26 year old F presents to the emergency department with the chief complaint of Headache, Quality is described as aching, and is localized to the head. Patient neck. Patient started experiencing this day(s) (3) and it has been constant. improves with No relieving factors improve symptom(s), No exacerbating factors reported . Patient notes fever/chills, loss of appetite and nausea/vomiting. Related Data Home Medications Medication Instructions Recorded Confirmed etonogestrel 68 mg subdermal 1 implant SUBDERMAL DIRECTED 07/16/20 03/16/22 implant (Nexplanon) nirmatrelvir 150 mg x 2-ritonavir See Rx Instructions .ROUTE 03/16/22 100 mg tablet (EUA) (Paxlovid .COMPLEX #6 tab (EUA)) Previous Rx's Medication Instructions Recorded nirmatrelvir 150 mg x 2-ritonavir See Rx Instructions .ROUTE 03/16/22 100 mg tablet (EUA) (Paxlovid .COMPLEX #6 tab (EUA)) Allergies Allergy/AdvReac Type Severity Reaction Status Date / Time fluticasone [From Flonase] Allergy Intermediate nares Verified 03/16/22 09:29 swelling fluoxetine AdvReac Severe vomiting Verified 03/16/22 09:29 and rectal bleed insect bites Allergy Hives Uncoded 03/16/22 09:29 General Stated Complaint: Headache DARVIN: 3 Review of Systems Constitutional Constitutional: Denies body ache(s), Reports chills, Denies fever(s) and Reports headache(s) Eyes Eyes: Denies change in vision ENT Ears, Nose, Mouth, and Throat: Denies dizziness and Reports headache(s) Cardiovascular Cardiovascular: Denies chest pain Gastrointestinal Gastrointestinal: Reports abdominal pain, Denies diarrhea, Reports nausea, Reports vomiting and Denies hematemesis Genitourinary Genitourinary: Denies dysuria Musculoskeletal Musculoskeletal: Denies joint swelling Neurologic Neurologic: Reports as per HPI, Denies dizziness and Reports headache(s) PFSH All Active Problems (Updated 03/16/22 @ 11:39 by Chase Alonso NP) Abrasion of cornea, left (Acute) COVID (Acute) Family history of cervical cancer (Chronic) Adopted, but Bio Mo (+) cervical cancer per Hx. Posttraumatic stress disorder (Acute) Major depressive disorder, recurrent, moderate (Acute) Psychiatric diagnosis (Chronic) Finally coordinated w/ [facility], s/w Dr. Gilliland .. Bipolar Dx, Lamotrigine started (@ 25mg qHS w/ goal of 100-200mg).. Talk therapy w/ Carla (?) Leg length discrepancy (Chronic) RT Fem Head 8mm superior to left (per 12/23/20 XR). PT vs Ortho (?) Lumbar scoliosis (Acute) No-show for appointment (Acute) Muscle spasm of back (Acute) trial muscle relaxer Patellofemoral syndrome, bilateral (Acute) Anxiety (Chronic) Depression (Chronic) Insomnia (Acute) Long Hx, but w/ acute on chronic exacerbations .. probably 2' stress/depression, but no regular psych support yet found. Decreased hearing (Acute) Rhinosinusitis (Acute) Low back pain (Acute) Shortness of breath (Acute) Chest discomfort (Acute) Prepatellar bursitis of right knee (Acute) Chronic tonsillitis (Acute) Tonsillectomy, Suárez, 2020 Tonsil stone (Acute) Adenoid hypertrophy (Acute) Sprain of wrist (Acute) Medical History Eating disorder Scoliosis Surgical History History of nasal surgery History of tonsillectomy Family History Mother Cervical cancer Other Cancer Diabetes Schizophrenia Social History Smoking/Tobacco Use Status: Never Smoking risk assessment performed?: Yes Alcohol Intake: never Drug use: Never Substance use type: does not use Adopted: Yes Do you need help understanding health information?: Rarely 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, [employer] Sexually active: No Do you think of yourself as: straight/heterosexual Current gender identity: female Do you feel safe at home: Yes Do you feel safe in your relationship?: Yes Female Reproductive History Menstrual Date of last menstrual period: 02/08/22 control method: implanted Exam Const General: cooperative, healthy appearing, no acute distress and well groomed Orientation: alert, awake and oriented x3 HENMT Head: normal to inspection Ears: hearing grossly normal bilaterally Mouth: oral mucosae normal and moist mucous membranes Throat: posterior oropharynx normal Eyes Visual Barry: normal visual barry by confrontation Alignment and Position: alignment normal Periorbital: periorbital findings normal Eyelids: eyelids normal Sclera: sclerae normal Pupils: PERRL EOM: EOM intact bilaterally Neck Neck: normal visual inspection, full ROM, no lymphadenopathy and no meningeal signs Resp Effort & Inspection: normal respiratory effort and able to speak in complete sentences Auscultation: clear to auscultation bilaterally Cardio Rate: tachycardic Rhythm: regular rhythm Heart Sounds: S1 normal and S2 normal GI Palpation: soft, not firm, no guarding, no hepatosplenomegaly, not rigid and tender (diffues) Auscultation: normal bowel sounds Neuro General: patient alert, patient awake, patient oriented x3, gait normal, tone normal, moves all extremities, CN's II-XI intact bilaterally and not confused Cognition: normal cognition Speech: speech normal Motor: muscle tone normal throughout, strength 5/5 throughout, no movement abnormalities noted and no fasciculations Coordination: Does not sway with eyes open Course Vital Signs Vital signs: Vital Signs Temperature 36.8 C 03/16/22 09:23 Pulse 111 H 03/16/22 09:23 Respiratory Rate 19 03/16/22 09:23 Blood Pressure 133/94 H 03/16/22 09:23 Pulse Oximetry 100 03/16/22 09:23 Temperature 36.8 C 03/16/22 09:23 Temperature Source Temporal Artery Scan 03/16/22 09:23 Pulse 111 H 03/16/22 09:23 Respiratory Rate 19 03/16/22 09:23 Respiratory Effort 03/16/22 09:23 Blood Pressure 133/94 H 03/16/22 09:23 Blood Pressure Position Supine 03/16/22 09:23 Pulse Oximetry 100 03/16/22 09:23 Oxygen Delivery Method Room Air 03/16/22 09:23 Oxygen Flow Rate 0 03/16/22 09:23 Pain Level 8 03/16/22 09:23
[2022-03-16 09:49] LABS: Abs Immature Grans 0.01 10^3/uL (0.0-0.06); Absolute Basophil Count 0.01 10^3/uL (0.0-0.2); Absolute Eosinophil Count 0.01 10^3/uL (0.0-0.7); Absolute Lymphocyte Count 0.24 10^3/uL (1.2-3.4); Absolute Monocyte Count 0.68 10^3/uL (0.1-0.8); Absolute Neutrophil Count 3.72 10^3/uL (1.2-6.7); Basophils % 0.2; Eosinophils % 0.2; HCT 42.5 % (36.0-46.0); HGB 14.4 g/dL (11.2-15.7); Immature Grans % 0.2; Lactate 1.3 mmol/L (0.6-1.4); Lymphocytes % 5.1; MCH 31.2 pg (27.0-33.0); MCHC 33.9 % (32.0-36.0); MPV 8.3 fL (8.0-11.0); Monocytes % 14.6; Neutrophils % 79.7; Platelet Count 227 10^3/uL (130-400); RBC 4.62 10^6/uL (3.93-5.22); RDW 12.4 % (11.7-14.6); RDW-SD 41.7 fL; WBC 4.67 10^3/uL (4.4-10.8)
[2022-03-16] MEDS: Normal Saline 1,000 ML 1000 ML IV (09:53)
[2022-03-16] MEDS: Ondansetron 4 MG/2 ML VIAL IVP (09:53)
[2022-03-16 10:07] LABS: ALT 27 U/L (14-59); AST 15 U/L (15-37); Albumin 4.4 g/dL (3.4-5.0); Alkaline Phosphatase 62 U/L (46-116); Anion Gap 7.6 mmol/L (3-11); BUN 8 mg/dL (7-18); Bilirubin, Total 0.4 mg/dL (0.2-1.0); CO2 26.4 mmol/L (21.0-32.0); Calcium 9.2 mg/dL (8.5-10.1); Chloride 103 mmol/L (98-107); Glucose 98 mg/dL (74-106); Lipase 126 U/L (73-393); Potassium 3.6 mmol/L (3.5-5.1); Sodium 137 mmol/L (136-145); Total Protein 8.4 g/dL (6.4-8.2)
[2022-03-16 10:56] LABS: Bilirubin Negative (Negative); Blood Trace-lysed (Negative); Clarity Clear (Clear); Glucose Negative (Negative); Ketones 15 mg/dL (Negative); Leukocyte Esterase Trace (Negative); Nitrite Negative (Negative); Urobilinogen 0.2 EU/dL (Up TO 0.2); pH 5.5 (5-8)
[2022-03-16 11:02] LABS: Bacteria Few HPF (Negative); C & S Indicated? No; Casts Negative LPF (Negative); Crystals Negative HPF (Negative); Epithelial Cells Rare HPF (Negative); Mucus Negative (Negative); Other Cells Negative (Negative); RBC 0-2 HPF (0-2)
[2022-03-16] MEDS: Ketorolac 15 MG/ML VIAL IVP (11:06)
[2022-03-16] MEDS: diphenhydrAMINE 50 MG/ML VIAL 25 MG IVP (11:06)
[2022-03-16 11:09] LABS: Influenza A PCR Negative (Negative); Influenza B PCR Negative (Negative); RSV PCR Negative (Negative)
[2022-03-16] MEDS: Normal Saline Flush 10 ML SYR IVP (11:09)
[2022-03-16 11:12] LABS: COVID-19 PCR Positive (Negative); Source Nasopharynx
== END 2022-03-16 11:57 | disposition home or self-care (01) ==
PROVIDERS: Emergency Provider Nurse Practitioner Family; PCP Student in an Organized Health Care Education/Training Program
DX: U07.1 COVID-19 (principal); R11.2 Nausea with vomiting, unspecified
CPT/HCPCS: 80053; 81025; 83690; 87637; 96361; 96374; 96375; 99283; 99284; 81003; 81015; 83605; 85025; J1200; J1885; J2405

== ENCOUNTER 2022-11-20 04:53 | Emergency (ER) | payer MEDICAID, SELFPAY ==
[2022-11-20 04:59] VITALS: BP 128/91; PULSE 100; RESP 196; TEMP 36.6; O2SAT 98
--- NOTE | 2022-11-20 05:00 | RT.EKG_ITS ---
APPROVED REPORT Exam: Resting ECG Reason for Exam: sob Patient Location: E HR:87 bpm ECG Measurements Heart Rate 87 AXIS FL 127 P 23 QRSd 88 QRS -4 QT 355 T 44 QTc 428 Conclusion Sinus rhythm...normal P axis, V-rate 60- 99 Physician: no stemi, no epsilon or delta wave
--- NOTE | 2022-11-20 05:00 | DI.RAD_ITS ---
Exam(s) XR PORTABLE CHEST AP EXAM: XR PORTABLE CHEST AP CLINICAL HISTORY: cough, eval for pneumonia. TECHNIQUE: 2D digital imaging was performed. COMPARISON: No exams were available for comparison FINDINGS: Single AP portable view. Heart size is upper normal. The mediastinum is not widened. Right lung is clear. However, there is a 3 x 2 cm nodular infiltrate in the mid left lung field. Al so appears to be some infiltrate in the left lower lobe behind the left side of the heart. No obviou s pleural effusions. No osseous findings. IMPRESSION: Left lung nodular infiltrate as described above, most probably infectious in this young age group but close imaging follow-up to resolution is nevertheless recommended to exclude more ominous pathology. DATA REPOSITORY: RADIATION DOSE DELIVERED:
--- NOTE | 2022-11-20 05:17 | ED.GENADUL_ITS ---
Discharge Plan Disposition Patient Disposition: Home Condition: Good Discharge Details Clinical Impression: URI (upper respiratory infection), Pneumonia Primary Care Provider: Ana Toledo ED Provider: Yg Barnes Home Meds and New Rx's Prescriptions: New doxycycline hyclate 100 mg tablet 100 mg PO BID Qty: 20 0RF No Action Nexplanon 68 mg Implant 1 implant SUBDERMAL DIRECTED Paxlovid (EUA) 150 mg x 2- 100 mg tablet See Rx Instructions .ROUTE .COMPLEX Qty: 6 0RF Rx Instructions: take TWO 150 mg tablets of nirmatrelvir with ONE 100 mg tablet of ritonavir twice daily for 5 days Discharge Instructions Additional Instructions: At this time your chest x-ray shows evidence of pneumonia. Your EKG is normal and shows no evidence of heart attack, dysrhythmia or other significant abnormality. Your COVID/flu/RSV test is negative. Please take the antibiotic as directed. Please get plenty of rest, take Tylenol and Motrin as needed for pain or fever, and drink 10 to 12 cups of fluid per day. If you notice any worsening of your symptoms, or any new symptoms such as vomiting, diarrhea, fever, chills, shortness of breath, chest pain, numbness, weakness, or fainting , please return immediately to the emergency department for reevaluation. Please follow up with your primary care provider as soon as possible for reassessment and reevaluation. As always, it was a pleasure participating in your medical care today. Referrals: Ana Toledo DO [Primary Care Provider] - Discharge Data Discharge Date/Time-TO BE ENTERED AT DEPARTURE: 11/20/22 06:36 Medical Decision Making 26-year-old female with a past medical history of Nexplanon, scoliosis, previous nasal surgery, presents today for evaluation of cough, shortness of breath, mild chest tightness for the last 4 days. She works at the [employer], multiple other coworkers have been sick with similar symptoms. Cough is productive, she denies any diarrhea. Mild nausea and gagging with cough though. Denies PE risk factors such as recent long car rides, immobilization, recent surgery, prior history of DVT or PE, family history of PE or DVT, morbid obesity, and smoking, hemoptysis, history of cancer. No other complaints at this time. No other modifying factors. Exam demonstrates well-appearing female, lung sounds are clear, ears demonstrate no infection. Symptoms appear consistent with mild viral upper respiratory infection. We will get an x-ray to rule out pneumonia, check for flu and COVID, monitor closely and reassess. 6 AM Chest x-ray shows evidence of mild left-sided pneumonia. We will start the patient on doxycycline and give a small bottle to start. We will send the whole prescription to her pharmacy. EKG is stable. Symptoms consistent with mild pneumonia. Discussed red flags for which to return I have extensively reviewed the treatment plan and discharge instructions with the patient. I have addressed all patient concerns at this time. The patient was made aware of what symptoms to monitor for that would warrant a return to the emergency department. Discussed the plan with the patient, they demonstrate verbal understanding and agreement with our assessment and plan at this time. The documentation in this chart was dictated using [employer] dictation software. Please excuse any dictation errors. FINDINGS: Lungs: Focal dense consolidation in the mid left lung measuring 1.9 x 2.9 cm concerning for pneumonia. The remainder of the lung parenchyma is clear. Pleural spaces: No pneumothorax. No pleural effusion. Heart/Mediastinum: The cardiomediastinal silhouette is within normal limits. Bones/joints: Unremarkable. IMPRESSION: Focal dense consolidation in the mid left lung concerning for pneumonia. The remainder of the lung parenchyma is clear. Recommend follow-up radiographs to demonstrate resolution. Thank you for allowing us to participate in the care of your patient. Dictated and Authenticated by: Connor Dimas MD 11/20/2022 6:20 AM Eastern Time ([place] & [place]) HPI General Date/Time Provider Initiated Documentation: 11/20/22 04:58 . HPI Narrative: 26-year-old female with a past medical history of Nexplanon, scoliosis, previous nasal surgery, presents today for evaluation of cough, shortness of breath, mild chest tightness for the last 4 days. She works at the [employer], multiple other coworkers have been sick with similar symptoms. Cough is productive, she denies any diarrhea. Mild nausea and gagging with cough though. Denies PE risk factors such as recent long car rides, immobilization, recent surgery, prior history of DVT or PE, family history of PE or DVT, morbid obesity, and smoking, hemoptysis, history of cancer. No other complaints at this time. No other modifying factors. Related Data Home Medications Medication Instructions Recorded Confirmed etonogestrel 68 mg subdermal 1 implant subdermal DIRECTED 07/16/20 03/16/22 implant (Nexplanon) nirmatrelvir 300 mg (150 mg See Rx Instructions PO .COMPLEX #6 03/16/22 x2)-ritonavir 100 mg tablet,dose tabs pack(EUA) (Paxlovid) doxycycline hyclate 100 mg tablet 100 mg PO BID #20 tabs 11/20/22 Previous Rx's Medication Instructions Recorded nirmatrelvir 300 mg (150 mg See Rx Instructions PO .COMPLEX #6 03/16/22 x2)-ritonavir 100 mg tablet,dose tabs pack(EUA) (Paxlovid) doxycycline hyclate 100 mg tablet 100 mg PO BID #20 tabs 11/20/22 Allergies Allergy/AdvReac Type Severity Reaction Status Date / Time fluticasone [From Flonase] Allergy Intermediate nares Verified 03/16/22 09:29 swelling fluoxetine AdvReac Severe vomiting Verified 03/16/22 09:29 and rectal bleed insect bites Allergy Hives Uncoded 03/16/22 09:29 General Stated Complaint: SOB DARVIN: 3 Review of Systems All systems reviewed & are unremarkable except as noted in HPI and below PFSH All Active Problems (Updated 11/20/22 @ 06:23 by Yg Barnes DO) Abrasion of cornea, left (Acute) COVID (Acute) URI (upper respiratory infection) (Acute) Pneumonia (Acute) Family history of cervical cancer (Chronic) Adopted, but Bio Mo (+) cervical cancer per Hx. Posttraumatic stress disorder (Acute) Major depressive disorder, recurrent, moderate (Acute) Psychiatric diagnosis (Chronic) Finally coordinated w/ [facility], s/w Dr. Gilliland .. Bipolar Dx, Lamotrigine started (@ 25mg qHS w/ goal of 100-200mg).. Talk therapy w/ Carla (?) Leg length discrepancy (Chronic) RT Fem Head 8mm superior to left (per 12/23/20 XR). PT vs Ortho (?) Lumbar scoliosis (Acute) No-show for appointment (Acute) Muscle spasm of back (Acute) trial muscle relaxer Patellofemoral syndrome, bilateral (Acute) Anxiety (Chronic) Depression (Chronic) Insomnia (Acute) Long Hx, but w/ acute on chronic exacerbations .. probably 2' stress/depression, but no regular psych support yet found. Decreased hearing (Acute) Rhinosinusitis (Acute) Low back pain (Acute) Shortness of breath (Acute) Chest discomfort (Acute) Prepatellar bursitis of right knee (Acute) Chronic tonsillitis (Acute) Tonsillectomy, Suárez, 2020 Tonsil stone (Acute) Adenoid hypertrophy (Acute) Sprain of wrist (Acute) Medical History Eating disorder Scoliosis Surgical History History of nasal surgery History of tonsillectomy Family History Mother Cervical cancer Other Cancer Diabetes Schizophrenia Social History Smoking/Tobacco Use Status: Never Smoking risk assessment performed?: Yes Alcohol Intake: never Drug use: Never Substance use type: does not use Adopted: Yes Do you need help understanding health information?: Rarely 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 3.ENT: Atraumatic external nose and ears. Moist MM. Neck: Symmetric, trachea midline, No thyromegaly. 4.CVS: +S1/S2, No murmurs or gallops. Peripheral pulses 2+ and equal in all extremities. Brisk capillary refill in all extremities. 5.RESP: Unlabored respiratory effort. Clear to auscultation bilaterally. No wheezes rales or rhonchi 6.GI: Soft, Nontender/Nondistended, No hepatosplenomegaly. No guarding or rebound. 7.MSK: Normocephalic/Atraumatic, Extremities w/o deformity or ttp No cyanosis or clubbing, Normal movement of all extremities 8.Skin: Warm, Dry. No rashes or lesions. 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 Sensation grossly intact, no focal neurologic deficits. 10.Psych: (AAO) x3. Appropriate mood and affect Course Vital Signs Vital signs: Vital Signs Temperature 36.6 C 11/20/22 04:59 Pulse 100 H 11/20/22 04:59 Respiratory Rate 196 H 11/20/22 04:59 Blood Pressure 128/91 H 11/20/22 04:59 Pulse Oximetry 98 11/20/22 04:59 Temperature 36.6 C 11/20/22 04:59 Pulse 100 H 11/20/22 04:59 Respiratory Rate 196 H 11/20/22 04:59 Respiratory Effort Labored 11/20/22 05:12 Respiratory Depth Normal 11/20/22 05:12 Respiratory Pattern Tachypnea 11/20/22 05:12 Blood Pressure 128/91 H 11/20/22 04:59 Blood Pressure Position Sitting 11/20/22 04:59 Pulse Oximetry 98 11/20/22 04:59 Oxygen Delivery Method Room Air 11/20/22 04:59 Oxygen Flow Rate 0 11/20/22 04:59 Pain Level 4 11/20/22 04:59
[2022-11-20 05:57] LABS: COVID-19 PCR Negative (Negative); Influenza A PCR Negative (Negative); Influenza B PCR Negative (Negative); RSV PCR Negative (Negative); Source Nasopharynx
--- NOTE | 2022-11-20 06:21 | DI.VRAD_ITS ---
PROCEDURE INFORMATION: Exam: XR Chest Exam date and time: 11/20/2022 5:01 AM Age: 26 years old Clinical indication: Cough and shortness of breath and other: Cough, SOB, R/O pneumonia TECHNIQUE: Imaging protocol: Radiologic exam of the chest. Views: 1 view. COMPARISON: CR XR SCOLIOSIS T-L SPINE 12/23/2020 3:18 PM FINDINGS: Lungs: Focal dense consolidation in the mid left lung measuring 1.9 x 2.9 cm concerning for pneumonia. The remainder of the lung parenchyma is clear. Pleural spaces: No pneumothorax. No pleural effusion. Heart/Mediastinum: The cardiomediastinal silhouette is within normal limits. Bones/joints: Unremarkable. IMPRESSION: Focal dense consolidation in the mid left lung concerning for pneumonia. The remainder of the lung parenchyma is clear. Recommend follow-up radiographs to demonstrate resolution. Dictated and Authenticated by: Connor Dimas MD. Ordering:AMEYA Ronquillo MD
[2022-11-20] MEDS: Doxycycline Hyclate 100 MG, 2 CAPS/BTL PO (06:28)
[2022-11-20 06:31] VITALS: BP 127/68; PULSE 78; RESP 16; O2SAT 99
== END 2022-11-20 06:36 | disposition home or self-care (01) ==
LOC: ER 06:17
PROVIDERS: Emergency Provider Student in an Organized Health Care Education/Training Program; PCP Student in an Organized Health Care Education/Training Program
DX: J18.9 Pneumonia, unspecified organism (principal); J06.9 Acute upper respiratory infection, unspecified; M41.9 Scoliosis, unspecified; Z20.822 Contact with and (suspected) exposure to COVID-19
CPT/HCPCS: 87637; 93005; 99283; 71045; 93010; 99285

== ENCOUNTER 2022-12-13 17:23 | Emergency (ER) | payer MEDICAID, SELFPAY ==
[2022-12-13] VITALS (17 sets, daily range): BP systolic 114–136; BP diastolic 72–87; PULSE 73–108; RESP 16–44; TEMP 36.8; O2SAT 95–100
--- NOTE | 2022-12-13 17:15 | RT.EKG_ITS ---
APPROVED REPORT Exam: Resting ECG Reason for Exam: sob Patient Location: E HR:90 bpm ECG Measurements Heart Rate 90 AXIS SC 66 P 0 QRSd 86 QRS -20 QT 413 T 14 QTc 505 Conclusion Sinus rhythm...normal P axis, V-rate 60- 99 Prolonged QT interval...QTc >495mS Physician: no stemi
--- NOTE | 2022-12-13 17:40 | ED.GENADUL_ITS ---
Discharge Plan Disposition Patient Disposition: Home Condition: Good Discharge Details Clinical Impression: Reactive airway disease Primary Care Provider: Ana Toledo ED Provider: Yg Barnes Home Meds and New Rx's Prescriptions: New prednisone 50 mg tablet 50 mg PO DAILY Qty: 5 0RF No Action Nexplanon 68 mg Implant 1 implant SUBDERMAL DIRECTED Discharge Instructions Instructions: Reactive Airways Disease (ED) Additional Instructions: At this time here work-up and CT imaging is normal. I suspect you have a component of reactive airway disease. I have sent a steroid Dosepak to your pharmacy on file. Please take this as directed. Please use your inhaler, take 2 puffs every 12 hours for the next week. If you notice any worsening of your symptoms, or any new symptoms such as vomiting, diarrhea, fever, chills, shortness of breath, chest pain, numbness, weakness, or fainting , please return immediately to the emergency department for reevaluation. Please follow up with your primary care provider as soon as possible for reassessment and reevaluation. As always, it was a pleasure participating in your medical care today. Referrals: Ana Toledo DO [Primary Care Provider] - Medical Decision Making 26-year-old female with a past medical history of Nexplanon, scoliosis, previous nasal surgery, who presents today for evaluation of wheeze. Patient was seen on 11/20/2022, at that time she had mild cough, x-ray showed evidence of pneumonia. She was started on doxycycline and discharge. Patient states that she took the doxycycline as directed for 10 days, and she had notable improvement of her symptoms, however she states that after she finished the doxycycline her symptoms seem to return and she developed continued worsening cough and shortness of breath as well as wheeze. She was taking Robitussin at home, but this did cause a bit of an allergic reaction. She went to see her primary care provider today and was noted to have notable wheeze, she was given a DuoNeb, then due to her symptoms was advised to go to the emergency department for further evaluation. She denies any chest pain, numbness, tingling or weakness. No other complaints at this time. No other modifying factors. Exam demonstrates a well-appearing female, vital signs are stable aside from mild tachypnea, mild wheezes throughout worse on the right than the left. Oxygen excellent though. Will give duo nebs, Solu-Medrol, evaluate for worsening pneumonia, get a D-dimer to rule in or out PE, monitor closely and reassess. 8:43 PM Patient's laboratory work-up has returned, no significant abnormalities, CTA was performed and shows no evidence of pulmonary embolism. Flu, COVID, RSV are all negative. Troponin is negative. Thyroid functions normal. After breathing treatments patient is feeling much better and feels comfortable and would like to go home. Patient will be discharged with steroid burst of 5 days, as well as inhaler for home use. I have extensively reviewed the treatment plan and discharge instructions with the patient. I have addressed all patient concerns at this time. The patient was made aware of what symptoms to monitor for that would warrant a return to the emergency department. Discussed the plan with the patient, they demonstrate verbal understanding and agreement with our assessment and plan at this time. The documentation in this chart was dictated using [employer] dictation software. Please excuse any dictation errors. FINDINGS: Mildly limited due to respiratory motion artifact Pulmonary arteries: No pulmonary emboli. Aorta: No aortic aneurysm. No aortic dissection. Lungs: No consolidation. No masses. Pleural spaces: No pneumothorax. No pleural effusion. Heart: No cardiomegaly. No pericardial effusion. Lymph nodes: No enlarged lymph nodes. Bones/joints: Unremarkable. No acute fracture Soft tissues: Unremarkable. A small hiatal hernia is detected. IMPRESSION: No acute findings. No pulmonary emboli detected Small hiatal hernia Thank you for allowing us to participate in the care of your patient. Dictated and Authenticated by: Salvatore Matute MD 12/13/2022 7:48 PM Eastern Time ([place] & [place]) HPI General Date/Time Provider Initiated Documentation: 12/13/22 17:24 . HPI Narrative: 26-year-old female with a past medical history of Nexplanon, scol iosis, previous nasal surgery, who presents today for evaluation of wheeze. Patient was seen on 11/20/2022, at that time she had mild cough, x-ray showed evidence of pneumonia. She was started on doxycycline and discharge. Patient states that she took the doxycycline as directed for 10 days, and she had notable improvement of her symptoms, however she states that after she finished the doxycycline her symptoms seem to return and she developed continued worsening cough and shortness of breath as well as wheeze. She was taking Robitussin at home, but this did cause a bit of an allergic reaction. She went to see her primary care provider today and was noted to have notable wheeze, she was given a DuoNeb, then due to her symptoms was advised to go to the emergency department for further evaluation. She denies any chest pain, numbness, tingling or weakness. No other complaints at this time. No other modifying factors. Related Data Home Medications Medication Instructions Recorded Confirmed etonogestrel 68 mg subdermal 1 implant subdermal DIRECTED 07/16/20 12/13/22 implant (Nexplanon) prednisone 50 mg tablet 50 mg PO DAILY #5 tabs 12/13/22 Previous Rx's Medication Instructions Recorded prednisone 50 mg tablet 50 mg PO DAILY #5 tabs 12/13/22 Allergies Allergy/AdvReac Type Severity Reaction Status Date / Time fluticasone [From Flonase] Allergy Intermediate nares Verified 12/13/22 17:28 swelling codeine [From Robitussin A-C] Allergy Skin Rash Verified 12/13/22 17:28 guaifenesin Allergy Skin Rash Verified 12/13/22 17:28 [From Robitussin A-C] fluoxetine AdvReac Severe vomiting Verified 12/13/22 17:28 and rectal bleed insect bites Allergy Hives Uncoded 12/13/22 17:28 General Stated Complaint: SOB DARVIN: 2 Review of Systems All systems reviewed & are unremarkable except as noted in HPI and below PFSH All Active Problems (Updated 12/13/22 @ 20:45 by Yg Barnes, ) Reactive airway disease (Acute) Abrasion of cornea, left (Acute) COVID (Acute) URI (upper respiratory infection) (Acute) Pneumonia (Acute) Family history of cervical cancer (Chronic) Adopted, but Bio Mo (+) cervical cancer per Hx. Posttraumatic stress disorder (Acute) Major depressive disorder, recurrent, moderate (Acute) Psychiatric diagnosis (Chronic) Finally coordinated w/ [facility], s/w Dr. Gilliland .. Bipolar Dx, Lamotrigine started (@ 25mg qHS w/ goal of 100-200mg).. Talk therapy w/ Carla (?) Leg length discrepancy (Chronic) RT Fem Head 8mm superior to left (per 12/23/20 XR). PT vs Ortho (?) Lumbar scoliosis (Acute) No-show for appointment (Acute) Muscle spasm of back (Acute) trial muscle relaxer Patellofemoral syndrome, bilateral (Acute) Anxiety (Chronic) Depression (Chronic) Insomnia (Acute) Long Hx, but w/ acute on chronic exacerbations .. probably 2' stress/depression, but no regular psych support yet found. Decreased hearing (Acute) Rhinosinusitis (Acute) Low back pain (Acute) Shortness of breath (Acute) Chest discomfort (Acute) Prepatellar bursitis of right knee (Acute) Chronic tonsillitis (Acute) Tonsillectomy, Suárez, 2020 Tonsil stone (Acute) Adenoid hypertrophy (Acute) Sprain of wrist (Acute) Medical History Eating disorder Scoliosis Surgical History History of nasal surgery History of tonsillectomy Family History Mother Cervical cancer Other Cancer Diabetes Schizophrenia Social History Smoking/Tobacco Use Status: Never Smoking risk assessment performed?: Yes Alcohol Intake: never Drug use: Never Substance use type: does not use Adopted: Yes Do you need help understanding health information?: Rarely 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 3.ENT: Atraumatic external nose and ears. Moist MM. Neck: Symmetric, trachea midline, No thyromegaly. Posterior oropharynx demonstrates no evidence of angioedema. 4.CVS: +S1/S2, No murmurs or gallops. Peripheral pulses 2+ and equal in all extremities. Brisk capillary refill in all extremities. 5.RESP: Tachypneic, mild wheezes, worse in the right than the left. No crackles or rhonchi. 6.GI: Soft, Nontender/Nondistended, No hepatosplenomegaly. No guarding or rebound. 7.MSK: Normocephalic/Atraumatic, Extremities w/o deformity or ttp No cyanosis or clubbing, Normal movement of all extremities 8.Skin: Warm, Dry. No rashes or lesions. 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 Sensation grossly intact, no focal neurologic deficits. 10.Psych: (AAO) x3. Appropriate mood and affect Course Vital Signs Vital signs: Vital Signs Temperature 36.8 C 12/13/22 17:25 Pulse 108 H 12/13/22 17:25 Respiratory Rate 44 H 12/13/22 17:25 Blood Pressure 131/87 12/13/22 17:25 Pulse Oximetry 98 12/13/22 17:25 Temperature 36.8 C 12/13/22 17:25 Temperature Source Skin 12/13/22 17:25 Pulse 80 12/13/22 17:35 Pulse 97 H 12/13/22 17:35 Respiratory Rate 25 H 12/13/22 17:35 Respiratory Effort Labored 12/13/22 17:35 Blood Pressure 136/84 12/13/22 17:35 Blood Pressure Mean 92 12/13/22 17:35 Blood Pressure Position Sitting 12/13/22 17:25 Pulse Oximetry 100 12/13/22 17:35 Oxygen Delivery Method Room Air 12/13/22 17:25 Oxygen Flow Rate 0 12/13/22 17:25 Pain Level 0 12/13/22 17:25
[2022-12-13] MEDS: Albuterol/Ipratropium 3 ML UPD VIAL 9 ML UPD (17:43)
[2022-12-13] MEDS: methylPREDNISolone SUCC 125 MG VIAL IVP (17:43)
[2022-12-13 17:51] LABS: Abs Immature Grans 0.03 10^3/uL (0.0-0.06); Absolute Basophil Count 0.03 10^3/uL (0.0-0.2); Absolute Eosinophil Count 0.13 10^3/uL (0.0-0.7); Absolute Lymphocyte Count 2.71 10^3/uL (1.2-3.4); Absolute Monocyte Count 0.77 10^3/uL (0.1-0.8); Basophils % 0.3; Eosinophils % 1.5; HGB 14.5 g/dL (11.2-15.7); Immature Grans % 0.3; Lymphocytes % 31.3; MCH 30.7 pg (27.0-33.0); MCHC 33.7 % (32.0-36.0); MCV 91 fL (80-95); MPV 8.4 fL (8.0-11.0); Monocytes % 8.9; Neutrophils % 57.7; Platelet Count 335 10^3/uL (130-400); RBC 4.73 10^6/uL (3.93-5.22); RDW 12.6 % (11.7-14.6); RDW-SD 41.6 fL; WBC 8.67 10^3/uL (4.4-10.8)
[2022-12-13 17:52] LABS: BE (Venous) -1 mmol/L (-2-3); HCO3 (Venous) 23 mmol/L (23-28); O2 Sat (Venous) 54 %; TCO2 (Venous) 21 mmol/L (24-29); pCO2 (Venous) 33 mmHg (41-51); pH (Venous) 7.46 (7.31-7.41); pO2 (Venous) 28 mmHg
[2022-12-13 18:19] LABS: ALT 49 U/L (14-59); AST 28 U/L (15-37); Albumin 4.4 g/dL (3.4-5.0); Alkaline Phosphatase 69 U/L (46-116); Anion Gap 9.9 mmol/L (3-11); BUN 13 mg/dL (7-18); Bilirubin, Total 0.3 mg/dL (0.2-1.0); CO2 24.1 mmol/L (21.0-32.0); CREATININE 0.7 mg/dL (0.55-1.02); Calcium 9.6 mg/dL (8.5-10.1); Chloride 103 mmol/L (98-107); Estimated GFR 122.25 (mL/min/1.73m2); Glucose 105 mg/dL (74-106); Potassium 3.4 mmol/L (3.5-5.1); Sodium 137 mmol/L (136-145); TSH (W/Ref FT4) 2.11 uIU/mL (0.36-3.74); Total Protein 8.6 g/dL (6.4-8.2); Troponin I < 50 ng/L (<or=60)
[2022-12-13 18:26] LABS: D-Dimer 280 ng/mlFEU (<500)
[2022-12-13 18:27] LABS: COVID-19 PCR Negative (Negative); Influenza A PCR Negative (Negative); Influenza B PCR Negative (Negative); RSV PCR Negative (Negative)
[2022-12-13 18:29] LABS: Source Nasopharynx
--- NOTE | 2022-12-13 18:30 | DI.CT_ITS ---
Exam(s) CT CHEST PE CTA EXAM: CT CHEST PE CTA CLINICAL HISTORY: chest pain, sob, r/o pe. TECHNIQUE: Imaging Protocol: CT angiography of the chest was performed using pulmonary embolus johnson col. Multi planar reconstructions were performed. CONTRAST MATERIAL: Intravenous: Omnipaque 350 Contrast volume: 100 cc COMPARISON: CT ABD PELVIS WITH CONTRAST from 10/10/2016 FINDINGS: CHEST: PULMONARY ARTERIES: There are no intraluminal filling defects to suggest acute pulmonary emboli. LUNGS: There are no infiltrates nor evidence of pulmonary infarction.. There are no pleural effusions . MEDIASTINUM: There is no hilar nor mediastinal adenopathy. Small hiatal hernia. CARDIAC: Heart size is upper normal. There is no pericardial effusion.Caliber of the thoracic aorta is within normal limits. There is no significant shift of the interventricular septum. PARTIALLY VISUALIZED UPPERMOST ABDOMEN: No obvious findings OSSEOUS: No significant osseous lesions.Fractures.. IMPRESSION: 1. No evidence of acute pulmonary emboli. No evidence of pulmonary infarction.No pulmonary infiltrat es. No pleural effusions. 2. No intrathoracic adenopathy. RADIATION DOSE DELIVERED: 365.69mGy.cm Total DLP DATA REPOSITORY: All CT scans at this facility are submitted to the National Radiology Data Registry (NRDR) Dose Index Registry (DIR) with the [employer] (ACR). RADIATION OPTIMIZATION: All CT scans at this facility use at least one of these dose optimization te chniques: automated exposure control; mA and/or kV adjustment per patient size (includes targeted exa ms where dose is matched to clinical indication); or iterative reconstruction.
[2022-12-13] MEDS: Omnipaque 350 MG/ML 100 ML BTL IV (19:34)
[2022-12-13] MEDS: Normal Saline - Diluent 50 ML VIAL IV (19:36)
[2022-12-13] MEDS: Normal Saline Flush 10 ML SYR IVP (19:36)
--- NOTE | 2022-12-13 19:49 | DI.VRAD_ITS ---
PROCEDURE INFORMATION: Exam: CTA Chest Without And With Contrast Exam date and time: 12/13/2022 7:17 PM Age: 26 years old Clinical indication: Other: Chest pain, SOB, R/O pe TECHNIQUE: Imaging protocol: Computed tomographic angiography of the chest without and with contrast. 3D rendering (Not supervised by radiologist): MIP and/or 3D reconstructed images were created by the technologist. Radiation optimization: All CT scans at this facility use at least one of these dose optimization techniques: automated exposure control; mA and/or kV adjustment per patient size (includes targeted exams where dose is matched to clinical indication); or iterative reconstruction. Contrast material: OMNIPAQUE 350; Contrast volume: 79 ml; Contrast route: INTRAVENOUS (IV); COMPARISON: XR PORTABLE CHEST AP 11/20/2022 5:01 AM FINDINGS: Mildly limited due to respiratory motion artifact Pulmonary arteries: No pulmonary emboli. Aorta: No aortic aneurysm. No aortic dissection. Lungs: No consolidation. No masses. Pleural spaces: No pneumothorax. No pleural effusion. Heart: No cardiomegaly. No pericardial effusion. Lymph nodes: No enlarged lymph nodes. Bones/joints: Unremarkable. No acute fracture. Soft tissues: Unremarkable. A small hiatal hernia is detected. IMPRESSION: No acute findings. No pulmonary emboli detected Small hiatal hernia Dictated and Authenticated by: Salvatore Matute MD. Ordering:AMEYA Ronquillo MD
[2022-12-13] MEDS: Budesonide/Formoterol 160/4.5 6 GM 60 PUFF INH IH (21:03)
== END 2022-12-13 21:14 | disposition home or self-care (01) ==
PROVIDERS: Emergency Provider Student in an Organized Health Care Education/Training Program; PCP Student in an Organized Health Care Education/Training Program
DX: J45.909 Unspecified asthma, uncomplicated (principal); Z20.822 Contact with and (suspected) exposure to COVID-19
CPT/HCPCS: 36415; 71275; 80053; 81025; 82805; 87637; 93005; 94640; 96374; 99285; 84443; 84484; 85025; 85379; 93010; J2930; J3490; J7620

== ENCOUNTER 2023-01-09 14:00 | Outpatient (CLI) | payer MEDICAID, SELFPAY ==
--- NOTE | 2023-01-09 14:00 | RT.EKG_ITS ---
APPROVED REPORT Exam: Resting ECG Reason for Exam: Pt reports fast irreg HR Patient Location: O HR:107 bpm ECG Measurements Heart Rate 107 AXIS MI 148 P 30 QRSd 84 QRS -7 QT 333 T 36 QTc 445 Conclusion Sinus tachycardia...rate> 99 Otherwise normal
== END 2023-01-09 14:01 | disposition home or self-care (01) ==
LOC: DI.KIM 14:01
PROVIDERS: PCP Nurse Practitioner; Visit Provider Nurse Practitioner
DX: I49.9 Cardiac arrhythmia, unspecified (principal); R94.31 Abnormal electrocardiogram [ECG] [EKG]; R00.0 Tachycardia, unspecified
CPT/HCPCS: 93010

== ENCOUNTER 2023-07-10 10:26 | Emergency (ER) | payer MEDICAID, SELFPAY ==
[2023-07-10 10:27] VITALS: BP 120/79; PULSE 85; RESP 15; TEMP 36.8; O2SAT 100
--- NOTE | 2023-07-10 10:46 | ED.GENADUL_ITS ---
Discharge Plan Disposition Patient Disposition: Home Condition: Good Discharge Details Clinical Impression: Muscle spasm, Acute neck pain Primary Care Provider: Naty Mike ED Provider: Robyn Chatman Home Meds and New Rx's Prescriptions: New cyclobenzaprine 5 mg tablet 5 mg PO TID PRNQty: 10 0RF Continued albuterol sulfate [Proventil HFA] 90 mcg/actuation HFA aerosol inhaler 2 puff inhalation QID Qty: 8.5 3RF Nexplanon 68 mg Implant 1 implant SUBDERMAL DIRECTED Discharge Instructions Instructions: Muscle Spasm (ED), Neck Pain (ED) Additional Instructions: Take Tylenol and ibuprofen over the counter for pain; follow the directions on the bottle. You can use ice or heat packs if they are helpful. You can take flexeril 5mg every 8 hours as needed for pain. Call your primary care doctor today to schedule an appointment to followup on your visit today. Return to the emergency department for new or worsening symptoms including fever, numbness, weakness, new/different/worse pain, or if you have any other concerns. Referrals: Naty Mike, [employer] SUPERVISOR [Primary Care Provider] - Medical Decision Making 27yo F with scoliosis presenting with right sided neck pain. Vital signs reassuring, exam with muscle spasm. History not concerning for meningitis. Given tyelnol, IM toradol, flexeril. On reassessment she reports pain much improved, able to range neck freely. Prescribed short course of flexeril. Discharged home; discharge instructions including return precautions were reviewed with patient who verbalized understanding. All questions were answered and they are in full agreement with the plan. HPI General Mode of arrival: ambulatory . Date/Time Provider Initiated Documentation: 07/10/23 10:45 . Limitations to Documentation: no limitations . Information obtained by: patient . HPI Narrative: 27yo F with scoliosis presenting with right sided neck pain. Started this morning while she was reaching up, sharp, radiating down into her shoulder. Has had similar episodes a few times over the past two months, sometimes on the right sometimes on the left. No recent injury to the area. Pain improved with ice. Tried alleve without improvement. She is otherwise in her usual state of health with no fevers, chills, rash, abdominal pain, chest pain, shortness of breath, numbness, tingling, weakness, nausea, vomiting, or other concerns. Related Data Home Medications Medication Instructions Recorded Confirmed etonogestrel 68 mg subdermal 1 implant subdermal DIRECTED 07/16/20 07/10/23 implant (Nexplanon) albuterol sulfate 90 mcg/actuation 2 puff inhalation QID #8.5 grams 12/26/22 07/10/23 aerosol inhaler (Proventil HFA) cyclobenzaprine 5 mg tablet 5 mg PO TID PRN #10 tabs 07/10/23 Previous Rx's Medication Instructions Recorded albuterol sulfate 90 mcg/actuation 2 puff inhalation QID #8.5 grams 12/26/22 aerosol inhaler (Proventil HFA) cyclobenzaprine 5 mg tablet 5 mg PO TID PRN #10 tabs 07/10/23 Allergies Allergy/AdvReac Type Severity Reaction Status Date / Time fluticasone [From Flonase] Allergy Intermediate nares Verified 07/10/23 10:33 swelling codeine [From Robitussin A-C] Allergy Skin Rash Verified 07/10/23 10:33 guaifenesin Allergy Skin Rash Verified 07/10/23 10:33 [From Robitussin A-C] fluoxetine AdvReac Severe vomiting Verified 07/10/23 10:33 and rectal bleed insect bites Allergy Hives Uncoded 07/10/23 10:33 General Stated Complaint: Nk/Back Pain DARVIN: 4 Review of Systems Narrative: see HPI PFSH All Active Problems (Updated 07/10/23 @ 11:09 by Robyn Chatman MD) Muscle spasm (Acute) Acute neck pain (Acute) Abrasion of cornea, left (Acute) COVID (Acute) Family history of cervical cancer (Chronic) Adopted, but Bio Mo (+) cervical cancer per Hx. Posttraumatic stress disorder (Acute) Major depressive disorder, recurrent, moderate (Acute) Psychiatric diagnosis (Chronic) Finally coordinated w/ [facility], s/w Dr. Gilliland .. Bipolar Dx, Lamotrigine started (@ 25mg qHS w/ goal of 100-200mg).. Talk therapy w/ Carla (?) Leg length discrepancy (Chronic) RT Fem Head 8mm superior to left (per 12/23/20 XR). PT vs Ortho (?) Lumbar scoliosis (Acute) No-show for appointment (Acute) Muscle spasm of back (Acute) trial muscle relaxer Patellofemoral syndrome, bilateral (Acute) Anxiety (Chronic) Depression (Chronic) Insomnia (Acute) Long Hx, but w/ acute on chronic exacerbations .. probably 2' stress/depression, but no regular psych support yet found. Decreased hearing (Acute) Rhinosinusitis (Acute) Low back pain (Acute) Shortness of breath (Acute) Chest discomfort (Acute) Prepatellar bursitis of right knee (Acute) Chronic tonsillitis (Acute) Tonsillectomy, Suárez, 2020 Tonsil stone (Acute) Adenoid hypertrophy (Acute) Sprain of wrist (Acute) Medical History Eating disorder Scoliosis Surgical History History of nasal surgery History of tonsillectomy Family History Mother Cervical cancer Other Cancer Diabetes Schizophrenia Social History Smoking/Tobacco Use Status: Never Smoking risk assessment performed?: Yes Alcohol Intake: never Drug use: Never Substance use type: does not use Adopted: Yes Housing: apartment Do you need help understanding health information?: Rarely 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 Head: Normocephalic, atraumatic Neck: Trachea midline, Neck supple. No cervical lymphadenopathy. Moderate right sided neck pain with rotation, L > R. Minimal pain with flexion and extension. Palpable right paraspinal spasm. Cardiac: RRR, no murmurs appreciated Resp: No respiratory distress. CTAB. Abd: Soft, non-distended, nontender : No suprapubic tenderness. Extremities: No deformities. No peripheral edema. Neurologic: GCS 15. Moves all extremities freely against gravity. Sensation intact to light touch and symmetric multiple dermatomes including upper and lower extremities Course Vital Signs Vital signs: Vital Signs Temperature 36.8 C 07/10/23 10:27 Pulse 85 07/10/23 10:27 Respiratory Rate 15 07/10/23 10:27 Blood Pressure 120/79 07/10/23 10:27 Pulse Oximetry 100 07/10/23 10:27 Temperature 36.8 C 07/10/23 10:27 Temperature Source Temporal Artery Scan 07/10/23 10:27 Pulse 85 07/10/23 10:27 Respiratory Rate 15 07/10/23 10:27 Respiratory Effort Normal 07/10/23 10:31 Blood Pressure 120/79 07/10/23 10:27 Blood Pressure Position Sitting 07/10/23 10:27 Pulse Oximetry 100 07/10/23 10:27 Oxygen Delivery Method Room Air 07/10/23 10:27 Oxygen Flow Rate 0 07/10/23 10:27 Pain Level 6 07/10/23 10:32
[2023-07-10] MEDS: Cyclobenzaprine 10 MG TAB 5 MG PO (11:07)
[2023-07-10] MEDS: Ketorolac 15 MG/ML VIAL IM (11:07)
[2023-07-10] MEDS: Acetaminophen 500 MG TAB 1000 MG PO (11:10)
[2023-07-10 11:50] VITALS: BP 116/77; PULSE 78; RESP 18; TEMP 36.9; O2SAT 98
== END 2023-07-10 11:51 | disposition home or self-care (01) ==
PROVIDERS: Emergency Provider Student in an Organized Health Care Education/Training Program; PCP Nurse Practitioner
DX: M62.838 Other muscle spasm (principal); M54.2 Cervicalgia
CPT/HCPCS: 96372; 99284; J1885

== ENCOUNTER 2024-02-07 22:53 | Emergency (ER) | payer BC, SELFPAY ==
[2024-02-07] VITALS (10 sets, daily range): BP systolic 94–113; BP diastolic 55–80; PULSE 75–95; RESP 14–28; TEMP 36.2; O2SAT 97–100
--- NOTE | 2024-02-07 23:00 | RT.EKG_ITS ---
APPROVED REPORT Exam: Resting ECG Reason for Exam: short of breath/chest pain Patient Location: E HR:88 bpm ECG Measurements Heart Rate 88 AXIS MD 149 P 41 QRSd 94 QRS -13 QT 383 T 29 QTc 463 Conclusion Sinus rhythm..., V-rate 60- [address] segment or T wave abnoramlities to suggest occlusive DC
[2024-02-07 23:28] LABS: Abs Immature Grans 0.07 10^3/uL (0.0-0.06); Absolute Basophil Count 0.05 10^3/uL (0.0-0.2); Basophils % 0.3; Eosinophils % 0.2; HCT 45.1 % (36.0-46.0); HGB 15.4 g/dL (11.2-15.7); Immature Grans % 0.4; Lymphocytes % 2.1; MCH 30.7 pg (27.0-33.0); MCHC 34.1 % (32.0-36.0); MCV 90 fL (80-95); MPV 8.3 fL (8.0-11.0); Monocytes % 4.8; Neutrophils % 92.2; Platelet Count 320 10^3/uL (130-400); RBC 5.01 10^6/uL (3.93-5.22); RDW 12.4 % (11.7-14.6); RDW-SD 40.2 fL
[2024-02-07 23:31] LABS: Absolute Eosinophil Count 0.04 10^3/uL (0.0-0.7); Absolute Lymphocyte Count 0.38 10^3/uL (1.2-3.4); Absolute Monocyte Count 0.86 10^3/uL (0.1-0.8)
[2024-02-07] MEDS: ACETAMINOPHEN 1,000 MG/100 ML BTL 400 MG IVPB (23:33)
[2024-02-07] MEDS: Ketorolac 15 MG/ML VIAL IVP (23:34)
[2024-02-07] MEDS: Ondansetron 4 MG/2 ML VIAL IVP (23:34)
[2024-02-07] MEDS: Normal Saline 500 ML 1000 ML IV (23:34)
[2024-02-08] VITALS (26 sets, daily range): BP systolic 82–104; BP diastolic 51–64; PULSE 63–90; RESP 13–26; O2SAT 96–99
[2024-02-08 00:05] LABS: ALT 26 U/L (14-59); AST 18 U/L (15-37); Albumin 4.4 g/dL (3.4-5.0); Alkaline Phosphatase 67 U/L (46-116); BUN 16 mg/dL (7-18); Bilirubin, Total 0.8 mg/dL (0.2-1.0); CREATININE 0.9 mg/dL (0.55-1.02); Calcium 9.1 mg/dL (8.5-10.1); Chloride 102 mmol/L (98-107); Glucose 151 mg/dL (74-106); HCG Quant, Pregnancy 1 mIU/mL (1-3); Potassium 3.8 mmol/L (3.5-5.1); Sodium 138 mmol/L (136-145); Total Protein 8.5 g/dL (6.4-8.2)
[2024-02-08 00:07] LABS: Troponin I < 50 ng/L (< or =60)
[2024-02-08 00:13] LABS: COVID-19 PCR Negative (Negative); Influenza A PCR Negative (Negative); Influenza B PCR Negative (Negative); RSV PCR Negative (Negative)
[2024-02-08 00:14] LABS: Source NASOPHARYNX
[2024-02-08 00:14] LABS: Lipase 44 U/L (16-77)
--- NOTE | 2024-02-08 00:20 | DI.RAD_ITS ---
Exam(s) XR CHEST 2V PA LATERAL EXAM: XR CHEST 2V PA LATERAL CLINICAL HISTORY: chest pain. TECHNIQUE: 2D digital imaging was performed. COMPARISON: CR,XR XR PORTABLE CHEST AP from 11/20/2022 FINDINGS: 2 views: Heart size is normal. The mediastinum is not widened. Lungs are presently clear. No infiltrates nor pleural effusions. This patient had left lung infiltrates 11/20/2022. These are no longer present. IMPRESSION: No acute pulmonary findings. DATA REPOSITORY: RADIATION DOSE DELIVERED:
--- NOTE | 2024-02-08 00:20 | DI.CT_ITS ---
Exam(s) CT ABDOMEN PELVIS W EXAM: CT ABDOMEN PELVIS W CLINICAL HISTORY: N/V, diffuse abdominal pain. TECHNIQUE: Imaging Protocol: Axial computed tomography images with coronal and sagittal reformatted images were created and reviewed CONTRAST MATERIAL: Intravenous: Omnipaque-350 100cc Oral: None COMPARISON: CT ABD PELVIS WITH CONTRAST from 10/10/[address] CHEST PE CTA from 12/13/2022 FINDINGS: VISUALIZED LUNG BASES: No nodules nor pleural effusions evident. ABDOMEN: There is no ascites. LIVER: There are no focal hepatic lesions evident. No dilated intrahepatic ducts. GALLBLADDER/BILIARY: No obvious gallbladder pathology. CBD is not dilated. PANCREAS: No evidence of pancreatic mass nor dilatation of the pancreatic duct. SPLEEN: Spleen is not enlarged. No obvious intrasplenic lesions. Splenic and portal veins are paten t. ADRENALS: There are no significant adrenal masses. KIDNEYS:No cysts evident. No solid renal masses. No calculi nor hydronephrosis.. ABDOMINAL AORTA: Abdominal aorta is not enlarged. LYMPH NODES:There are few slightly prominent central mesenteric lymph nodes, these measuring less renaldo n 1 cm. ABDOMINAL WALL: No evidence of significant anterior abdominal wall nor inguinal hernia. GI: There are multiple minimally prominent fluid-filled small bowel loops.. The ascending-right colo n is also fluid-filled. There is no evidence of bowel obstruction, free air, nor abscess. PELVIS: GI: No evidence of appendicitis.No evidence of sigmoid diverticulitis. LYMPH NODES: There is no intrapelvic nor inguinal adenopathy. REPRODUCTIVE: Uterus and adnexal regions appear unremarkable. There is no free fluid. URINARY BLADDER: No calculi nor obvious masses evident OSSEOUS: No fractures and no significant osseous lesions. IMPRESSION: 1. There is subtle evidence of small-bowel enteritis pattern. No evidence of bowel obstruction, free air, nor abscess. 2. No evidence of appendicitis nor diverticulitis. 3. Mildly enlarged mesenteric lymph nodes which are probably related to the enteritis. RADIATION DOSE DELIVERED: Total DLP DATA REPOSITORY: All CT scans at this facility are submitted to the National Radiology Data Registry (NRDR) Dose Index Registry (DIR) with the [employer] (ACR). RADIATION OPTIMIZATION: All CT scans at this facility use at least one of these dose optimization te chniques: automated exposure control; mA and/or kV adjustment per patient size (includes targeted exa ms where dose is matched to clinical indication); or iterative reconstruction.
[2024-02-08] MEDS: Omnipaque 350 MG/ML 100 ML BTL IJ (00:54)
[2024-02-08] MEDS: Normal Saline - Diluent 50 ML VIAL IJ (00:55)
[2024-02-08] MEDS: Normal Saline Flush 10 ML SYR IVP (00:56)
--- NOTE | 2024-02-08 01:25 | W.ED.GENAD ---
Discharge Plan Disposition Patient Disposition: Home Condition: Good Discharge Details Clinical Impression: Colitis Primary Care Provider: Naty Mike ED Provider: Robyn Chatman Home Meds and New Rx's Prescriptions: New ondansetron 4 mg tablet,disintegrating 4 mg PO Q8H PRNQty: 14 0RF Continued albuterol sulfate [Proventil HFA] 90 mcg/actuation HFA aerosol inhaler 2 puff inhalation QID Qty: 8.5 3RF montelukast [Singulair] 10 mg tablet 10 mg PO DAILY 30 Days Qty: 30 1RF Nexplanon 68 mg Implant 1 implant SUBDERMAL DIRECTED cyclobenzaprine 5 mg tablet 5 mg PO TID PRNQty: 10 0RF Discharge Instructions Instructions: Colitis (ED) Additional Instructions: Tylenol and ibuprofen over the counter for pain; follow the directions on the bottle. Zofran up to every 8 hours as needed for nausea. Call your primary care doctor today to schedule an appointment to follow up on your visit here. Your CT showed a possible small cyst on your kidney- please mention this to your PCP. Return to the emergency department for new or worsening symtpoms including fever, inability to keep down fluids, new/different/worse pain, or if you have any other concerns. Stand Alone Forms: Work Release Referrals: Naty Mike, PRINTING SUPPLIES SALES REPRESENTATIVE [Primary Care Provider] - [facility] General Mode of arrival: ambulatory. Date/Time Provider Initiated Documentation: 02/07/24 22:56. Limitations to Documentation: no limitations. Information obtained by: patient. HPI Narrative: 28yo F with hx of asthma presenting for acute abdominal pain onset around 4pm this afternoon. Has associated nausea, vomiting, and diarrhea. Emesis has been frequent, nonbilious, later in the evening became streaked with blood. Pain is diffuse, severe, crampy, worse with vomiting, and does not radiate. Chest feels tight when she is vomiting and it is a little hard to breathe, otherwise no chest pain or shortness of breath. Mild cough for a few days. Has not needed her inhalers. Has not felt wheezy. She is otherwise in her usual state of health with no fevers, chills, rash, dysuria, hematuria, flank pain, vaginal discharge, vaginal bleeding (nexplanon, not regularly menstruating), or other concerns. Related Data Home Medications Medication Instructions Recorded Confirmed etonogestrel 68 mg subdermal 1 implant subdermal DIRECTED 07/16/20 02/07/24 implant (Nexplanon) albuterol sulfate 90 mcg/actuation 2 puff inhalation QID #8.5 grams 12/26/22 02/07/24 aerosol inhaler (Proventil HFA) cyclobenzaprine 5 mg tablet 5 mg PO TID PRN #10 tabs 07/10/23 02/07/24 montelukast 10 mg tablet 10 mg PO DAILY 30 days #30 tabs 09/05/23 02/07/24 (Singulair) ondansetron 4 mg disintegrating 4 mg PO Q8H PRN #14 tabs 02/08/24 tablet Previous Rx's Medication Instructions Recorded albuterol sulfate 90 mcg/actuation 2 puff inhalation QID #8.5 grams 12/26/22 aerosol inhaler (Proventil HFA) cyclobenzaprine 5 mg tablet 5 mg PO TID PRN #10 tabs 07/10/23 montelukast 10 mg tablet 10 mg PO DAILY 30 days #30 tabs 09/05/23 (Singulair) ondansetron 4 mg disintegrating 4 mg PO Q8H PRN #14 tabs 02/08/24 tablet Allergies Allergy/AdvReac Type Severity Reaction Status Date / Time fluticasone [From Flonase] Allergy Intermediate nares Verified 02/07/24 23:06 swelling codeine [From Robitussin A-C] Allergy Skin Rash Verified 02/07/24 23:06 guaifenesin Allergy Skin Rash Verified 02/07/24 23:06 [From Robitussin A-C] fluoxetine AdvReac Severe vomiting Verified 02/07/24 23:06 and rectal bleed insect bites Allergy Hives Uncoded 02/07/24 23:06 General Stated Complaint: Nausea/Vomit/Diar DARVIN: 3 Review of Systems Narrative: see HPI Exam Narrative Exam Narrative: General: Alert, non-toxic appearing Head: Normocephalic, atraumatic Neck: Trachea midline, ?Neck supple. ENT: ?MMM.? Cardiac: ?RRR, no murmurs appreciated Resp: No respiratory distress. CTAB. Abd: ?Soft, non-distended, diffusely tender to palpation worse in the LUQ with voluntary guarding. No rebound or involuntary guarding. : ?No suprapubic tenderness. No CVA tenderness. Extremities: ?No deformities.? No peripheral edema. Neurologic: GCS 15. ? Moves all extremities freely against gravity Course Vital Signs Vital signs: Vital Signs Temperature 36.2 C L 02/07/24 22:59 Pulse 90 02/07/24 22:59 Respiratory Rate 24 02/07/24 22:59 Blood Pressure 106/80 02/07/24 22:59 Pulse Oximetry 99 02/07/24 22:59 Temperature 36.2 C L 02/07/24 23:10 Temperature Source Skin 02/07/24 23:10 Pulse 83 02/07/24 23:30 Pulse 75 02/07/24 23:31 Respiratory Rate 14 02/07/24 23:31 Respiratory Effort Normal, Non-Labored 02/07/24 23:06 Blood Pressure 109/78 02/07/24 23:30 Blood Pressure Mean 88 02/07/24 23:30 Blood Pressure Position Supine 02/07/24 23:10 Pulse Oximetry 99 02/07/24 23:31 Oxygen Delivery Method Room Air 02/07/24 23:10 Oxygen Flow Rate 0 02/07/24 23:10 Pain Level 8 02/07/24 23:10 Lab/Test Results Lab/Test Results: Laboratory Tests Range/Units 02/07/24 02/07/24 23:05 23:27 WBC (4.4-10.8) 10^3/uL 18.00 H RBC (3.93-5.22) 10^6/uL 5.01 Hgb (11.2-15.7) g/dL 15.4 Hct (36.0-46.0) % 45.1 MCV (80-95) fL 90 MCH (27.0-33.0) pg 30.7 MCHC (32.0-36.0) % 34.1 RDW (11.7-14.6) % 12.4 Plt Count (130-400) 10^3/uL 320 MPV (8.0-11.0) fL 8.3 Immature Gran % 0.4 Neutrophils % 92.2 Lymphocytes % 2.1 Monocytes % 4.8 Eosinophils % 0.2 Basophils % 0.3 Nucleated RBC % (0.0-0.3) % 0.0 Absolute Neutrophils (1.2-6.7) 10^3/uL 16.60 H Absolute Lymphocytes (1.2-3.4) 10^3/uL 0.38 L Absolute Monocytes (0.1-0.8) 10^3/uL 0.86 H Absolute Eosinophils (0.0-0.7) 10^3/uL 0.04 Absolute Basophils (0.0-0.2) 10^3/uL 0.05 Sodium (136-145) mmol/L 138 Potassium (3.5-5.1) mmol/L 3.8 Chloride (98-107) mmol/L 102 Carbon Dioxide (21.0-32.0) mmol/L 23.0 Anion Gap (3-11) mmol/L 13.0 H BUN (7-18) mg/dL 16 Creatinine (0.55-1.02) mg/dL 0.9 Est GFR (CKD-EPI 2020) (mL/min/1.73m2) 89.30 Glucose (74-106) mg/dL 151 H Calcium (8.5-10.1) mg/dL 9.1 Total Bilirubin (0.2-1.0) mg/dL 0.8 AST (15-37) U/L 18 ALT (14-59) U/L 26 Alkaline Phosphatase (46-116) U/L 67 Troponin I (< or =60) ng/L < 50 Total Protein (6.4-8.2) g/dL 8.5 H Albumin (3.4-5.0) g/dL 4.4 Lipase (16-77) U/L 44 Beta HCG, Quant (1-3) mIU/mL 1 COVID-19 Source NASOPHARYNX SARS-CoV-2 (PCR) (Negative) Negative Influenza Type A (PCR) (Negative) Negative Influenza Type B (PCR) (Negative) Negative RSV (PCR) (Negative) Negative Medical Decision Making 28yo F with hx of asthma presenting for acute abdominal pain onset around 4pm this afternoon. Has associated nausea, vomiting, and diarrhea. Emesis has been frequent, nonbilious, later in the evening became streaked with blood. Pain is diffuse, severe, crampy, worse with vomiting, and does not radiate. Chest feels tight when she is vomiting and it is a little hard to breathe, otherwise no chest pain or shortness of breath. Mild cough for a few days. Has not needed her inhalers. Has not felt wheezy. She is otherwise in her usual state of health with no fevers, chills, rash, dysuria, hematuria, flank pain, vaginal discharge, vaginal bleeding (nexplanon, not regularly menstruating), or other concerns. Vital signs reassuring on arrival, on exam she has diffuse abdominal tenderness worse in the LUQ with voluntary guarding, no rebound or involuntary guarding. No lower abdominal tenderness to suggest ovarian/pelvic pathology; would not transfer for US or do pelvic exam at this time. Not septic. -Tylenol/toradol for pain, zofran for nausea, 1L IVFB. -Labs reviewed as below, CBC with leukocytosis to 18, CMP reassuring with no actionable abnormalities (slightly elevated gap at 13 with no acidosis), troponin negative (would not further persue acute coronary syndromes), UA with trace blood of unclear significance, not suggestive of UTI. -EKG from triage SR, appropriate intervals, no ST segment or T wave abnormalities on my view. -CXR independently reviewed, normal chest on my view, agree with radiology read below. -CT abd/pelvis independently reviewed,no obstruction or free fluid on my view, agree with radiology read below with diffuse colits. On reassessment patient reports pain much improved, abd soft with mild diffuse tenderness with no guarding. Vital signs remain reassuring. PO challenged and tolerated fluids well. Requesting discharge home which is reasonable. Prescribed zofran and advised symptomatic treatment at home. Discharge instructions and return precautions were reviewed with patient who verbalized understanding. All questions were answered and she is in full agreement with the plan. Imaging Data Radiologic Study: Imaging: CT Scan Radiologist's impression: IMPRESSION: Wall thickening of multiple bowel loops consistent with infectious or inflammatory enteritis (axial images 25 - 33/4; coronal image 32/6). Radiologic Study #2: Imaging: X-Ray Radiologist's impression: IMPRESSION: No acute findings Lab Data Lab results reviewed: Yes I reviewed the patient's lab results. Labs: Laboratory Tests Range/Units 02/07/24 02/07/24 02/08/24 23:05 23:27 02:00 WBC (4.4-10.8) 10^3/uL 18.00 H RBC (3.93-5.22) 10^6/uL 5.01 Hgb (11.2-15.7) g/dL 15.4 Hct (36.0-46.0) % 45.1 MCV (80-95) fL 90 MCH (27.0-33.0) pg 30.7 MCHC (32.0-36.0) % 34.1 RDW (11.7-14.6) % 12.4 Plt Count (130-400) 10^3/uL 320 MPV (8.0-11.0) fL 8.3 Immature Gran % 0.4 Neutrophils % 92.2 Lymphocytes % 2.1 Monocytes % 4.8 Eosinophils % 0.2 Basophils % 0.3 Nucleated RBC % (0.0-0.3) % 0.0 Absolute Neutrophils (1.2-6.7) 10^3/uL 16.60 H Absolute Lymphocytes (1.2-3.4) 10^3/uL 0.38 L Absolute Monocytes (0.1-0.8) 10^3/uL 0.86 H Absolute Eosinophils (0.0-0.7) 10^3/uL 0.04 Absolute Basophils (0.0-0.2) 10^3/uL 0.05 Sodium (136-145) mmol/L 138 Potassium (3.5-5.1) mmol/L 3.8 Chloride (98-107) mmol/L 102 Carbon Dioxide (21.0-32.0) mmol/L 23.0 Anion Gap (3-11) mmol/L 13.0 H BUN (7-18) mg/dL 16 Creatinine (0.55-1.02) mg/dL 0.9 Est GFR (CKD-EPI 2020) (mL/min/1.73m2) 89.30 Glucose (74-106) mg/dL 151 H Calcium (8.5-10.1) mg/dL 9.1 Total Bilirubin (0.2-1.0) mg/dL 0.8 AST (15-37) U/L 18 ALT (14-59) U/L 26 Alkaline Phosphatase (46-116) U/L 67 Troponin I (< or =60) ng/L < 50 Total Protein (6.4-8.2) g/dL 8.5 H Albumin (3.4-5.0) g/dL 4.4 Lipase (16-77) U/L 44 Beta HCG, Quant (1-3) mIU/mL 1 Urine Color (Yellow) Yellow Urine Clarity (Clear) Clear Urine pH (5-8) 5.5 Ur Specific [place] (1.005-1.025) <= 1.005 Urine Protein (Neg-Trace) mg/dL Negative Urine Ketones (Negative) mg/dL Negative Urine Blood (Negative) Trace-intact H Urine Nitrite (Negative) Negative Urine Bilirubin (Negative) Negative Urine Urobilinogen (Up to 0.2) mg/dL 0.2 Ur Leukocyte Esterase (Negative) Negative Urine RBC (0-2) HPF 3-5 H Urine WBC (0-5) HPF 0-2 Ur Epithelial Cells (Negative) HPF Many Urine Crystals (Negative) HPF Negative Urine Bacteria (Negative) HPF Rare Urine Mucus (Negative) Trace Ur Culture Indicated? No Urine Glucose (Negative) mg/dL Negative COVID-19 Source NASOPHARYNX SARS-CoV-2 (PCR) (Negative) Negative Influenza Type A (PCR) (Negative) Negative Influenza Type B (PCR) (Negative) Negative RSV (PCR) (Negative) Negative Quality:SDOH Health Related Social Needs: No Data to Display PFSH All Active Problems (Updated 02/08/24 @ 03:29 by Robyn Chatman MD) Colitis (Acute) Nasal congestion (Acute) Abrasion of cornea, left (Acute) COVID (Acute) Family history of cervical cancer (Chronic) Adopted, but Bio Mo (+) cervical cancer per Hx. Posttraumatic stress disorder (Acute) Major depressive disorder, recurrent, moderate (Acute) Psychiatric diagnosis (Chronic) Finally coordinated w/ [facility], s/w Dr. Gilliland .. Bipolar Dx, Lamotrigine started (@ 25mg qHS w/ goal of 100-200mg).. Talk therapy w/ Carla (?) Leg length discrepancy (Chronic) RT Fem Head 8mm superior to left (per 12/23/20 XR). PT vs Ortho (?) Lumbar scoliosis (Acute) No-show for appointment (Acute) Muscle spasm of back (Acute) trial muscle relaxer Patellofemoral syndrome, bilateral (Acute) Anxiety (Chronic) Depression (Chronic) Insomnia (Acute) Long Hx, but w/ acute on chronic exacerbations .. probably 2' stress/depression, but no regular psych support yet found. Decreased hearing (Acute) Rhinosinusitis (Acute) Low back pain (Acute) Shortness of breath (Acute) Chest discomfort (Acute) Prepatellar bursitis of right knee (Acute) Chronic tonsillitis (Acute) Tonsillectomy, Suárez, 2019 Tonsil stone (Acute) Adenoid hypertrophy (Acute) Sprain of wrist (Acute) Medical History Eating disorder Scoliosis Surgical History History of nasal surgery History of tonsillectomy Family History Mother Cervical cancer Other Cancer Diabetes Schizophrenia Social History Smoking/Tobacco Use Status: Never Smoking risk assessment performed?: Yes Alcohol Intake: never Drug use: Never Substance use type: does not use Adopted: Yes Housing: apartment Do you need help understanding health information?: Rarely 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
--- NOTE | 2024-02-08 02:06 | DI.VRAD_ITS ---
PROCEDURE INFORMATION: Exam: CT Abdomen And Pelvis With Contrast Exam date and time: 02/08/2024 12:41 AM Age: 28 years old Clinical indication: Nausea and vomiting; Abdominal pain; Additional info: N/v, diffuse abdominal pain TECHNIQUE: Imaging protocol: Computed tomography of the the the in abdomen and pelvis with contrast. Contrast material: OMNI 350; Contrast volume: 100 ml; Contrast route: INTRAVENOUS (IV); COMPARISON: CT CHEST PE CTA 12/13/2022 7:17 PM FINDINGS: Lungs: The visualized lung bases appear normal. Liver: The liver is normal in size. There are no enhancing liver masses. Gallbladder and bile ducts: No calcified gallstones are identified. There is no pericholecystic fluid. Pancreas: The pancreas is normal. Spleen: The spleen is normal in size and density. Adrenal glands: The adrenal glands are normal. Kidneys and ureters: There is no hydronephrosis. No renal or obstructive ureteral calculi are identified. In the left kidney, there is a subcentimeter hypodensity, too small to characterize but likely a cyst. Stomach and bowel: There is no evidence of small bowel or colonic obstruction. Wall thickening of multiple bowel loops consistent with infectious or inflammatory enteritis (axial images 25 - 33/4; coronal image 32/6). Appendix: A normal appendix is identified. Intraperitoneal space: No free air. No significant fluid collection. Vasculature: No evidence of thoracic or abdominal aortic aneurysm or dissection. The celiac trunk, SMA and HANH are widely patent. Lymph nodes: Multiple borderline prominent lymph nodes at the root of the mesentery as large as 8 mm in short dimension, likely reactive.. Urinary bladder: The bladder shows a normal contour and is free of calcific opacities. Reproductive: Unremarkable as visualized. Bones/joints: No acute fracture. Soft tissues: Normal. IMPRESSION: Wall thickening of multiple bowel loops consistent with infectious or inflammatory enteritis (axial images 25 - 33/4; coronal image 32/6). Dictated and Authenticated by: Huber Echeverria MD. Ordering:YASIR Carlson MD
[2024-02-08 02:07] LABS: Bilirubin Negative (Negative); Blood Trace-intact (Negative); Clarity Clear (Clear); Glucose Negative (Negative); Ketones Negative (Negative); Leukocyte Esterase Negative (Negative); Nitrite Negative (Negative); Specific Gravity <= 1.005 (1.005-1.025); Urobilinogen 0.2 mg/dL (Up to 0.2); pH 5.5 (5-8)
--- NOTE | 2024-02-08 02:08 | DI.VRAD_ITS ---
PROCEDURE INFORMATION: Exam: XR Chest Exam date and time: 02/08/2024 12:34 AM Age: 28 years old Clinical indication: Pain; Chest pressure TECHNIQUE: Imaging protocol: Radiologic exam of the chest. Views: 2 views. COMPARISON: CT CHEST PE CTA 12/13/2022 7:17 PM FINDINGS: Tubes, catheters and devices: EKG monitoring leads overlie the thoracic wall. Lungs: There is no consolidation. Pleural spaces: No pleural effusion or pneumothorax. Heart/Mediastinum: The heart and mediastinum are normal in size. Bones/joints: Unremarkable. IMPRESSION: No acute findings. Dictated and Authenticated by: Huber Echeverria MD. Ordering:YASIR Carlson MD
[2024-02-08 02:14] LABS: Bacteria Rare HPF (Negative); C & S Indicated? No; Crystals Negative HPF (Negative); Epithelial Cells Many HPF (Negative); Mucus Trace (Negative); WBC 0-2 HPF (0-5)
[2024-02-08] MEDS: Ondansetron O.D.T. 4 MG TABEF, 3 TABS/BTL PO (03:46)
== END 2024-02-08 03:48 | disposition home or self-care (01) ==
PROVIDERS: Emergency Provider Student in an Organized Health Care Education/Training Program; PCP Nurse Practitioner
DX: K52.9 Noninfective gastroenteritis and colitis, unspecified (principal); Z11.52 Encounter for screening for COVID-19
CPT/HCPCS: 36415; 80053; 83690; 87637; 93005; 96374; 96375; 99285; 71046; 74177; 81003; 81015; 84484; 84702; 85025; 93010; 99284; J0131; J1885; J2405; J3490

== ENCOUNTER → 2024-04-15 18:03 | Outpatient (CLI) | payer BC, SELFPAY ==
--- NOTE | 2024-04-15 15:40 | DI.RAD_ITS ---
Exam(s) XR SACROILIAC JOINTS EXAM: XR SACROILIAC JOINTS CLINICAL HISTORY: M25.69 Stiffness of other specified JNT, Possible ankylosing spondylitis?. TECHNIQUE: 2D digital imaging was performed. COMPARISON: CT ABD PELVIS WITH CONTRAST from 10/10/[address] CHEST PE CTA from 12/13/[address] ABDOMEN PELVIS W from 02/08/2024 FINDINGS: Bones: No fracture is present. No bony destructive lesion is seen. Alignment is satisfactory. SI Joint: No fusion or erosions are seen. Mild sclerosis inferiorly. Mild spurring inferiorly Soft Tissue: Normal. IMPRESSION: Mild spurring and sclerosis of the inferior SI joints. No findings specific for ankylosing spondylit is. DATA REPOSITORY: RADIATION DOSE DELIVERED:
== END ==
PROVIDERS: PCP Nurse Practitioner; Visit Provider Family Medicine
DX: M25.69 Stiffness of other specified joint, not elsewhere classified (principal)
CPT/HCPCS: 72202

== ENCOUNTER 2024-05-14 05:02 | Outpatient (CLI) | payer BC, SELFPAY ==
[2024-05-14 14:58] LABS: ESR 5 mm/hr (0-20)
[2024-05-14 15:59] LABS: C-Reactive Protein < 0.50 mg/dL (<or=0.5)
[2024-05-15 17:45] LABS: Rheumatoid Factor <8.6 IU/mL (<12.0)
[2024-05-16 08:43] LABS: Cyclic Citrullinated Peptide <2.5 U/mL (<5.0)
[2024-05-16 12:05] LABS: Lyme Ab w Rflx to Lyme Confirm Negative (Negative)
[2024-05-16 14:51] LABS: ANA Interpretation Negative (Negative)
[2024-05-17 16:14] LABS: HLA-B27 Result Negative
[2024-05-17 21:07] LABS: Anaplasma phagocytophilum Negative (Negative); B. miyamotoi PCR Negative (Negative); Babesia divergens/MO-1 Negative (Negative); Babesia duncani Negative (Negative); Babesia microti Negative (Negative); Ehrlichia chaffeensis Negative (Negative); Ehrlichia ewingii/canis Negative (Negative); Ehrlichia muris eauclairensis Negative (Negative)
== END 2024-05-14 05:03 | disposition home or self-care (01) ==
LOC: LBO 05:02
PROVIDERS: PCP Nurse Practitioner; Visit Provider Nurse Practitioner
DX: M25.69 Stiffness of other specified joint, not elsewhere classified (principal); R53.83 Other fatigue
CPT/HCPCS: 36415; 85652; 86200; 86812; 87798; 86038; 86140; 86431; 86618